=== PATIENT | male | born 1985 | race Caucasian/White ===

== ENCOUNTER 2019-09-07 03:51 | Inpatient (IN) | payer MEDICAID, SELFPAY ==
[2019-09-07] VITALS (27 sets, daily range): BP systolic 95–141; BP diastolic 70–106; PULSE 129–144; RESP 17–27; TEMP 36.3–37; O2SAT 96–100; BMI 24.0
--- NOTE | 2019-09-07 03:41 | NURSING ---
Dr. Myers at bedside.
[2019-09-07 03:51] LABS: Absolute Lymphocyte Count 2.54 X10^3/uL (0.83-4.51); Absolute Neutrophil Count 28.9 X10^3/uL (2.0-7.7); Basophil# 0.12 X10^3/uL; Basophil% 0.3 % (0-1); Eosinophil# 0.01 X10^3/uL; Hematocrit 43.4 % (40-54); Hemoglobin 14.3 g/dL (13.0-16.5); Lymphocyte # 2.54 X10^3/ul (4.0); Lymphocyte % 7.3 % (19-41); Mean Corp Hgb Conc 32.9 g/dL (32-36); Mean Corpuscular Hgb 28.8 pg (27.0-32.0); Mean Corpuscular Volume 87.3 fL (80-94); Mean Platelet Vol. 9.2 fl (6.2-12.0); Monocyte# 2.65 X10^3/uL; Monocyte% 7.6 % (0-10); NRBC Flagged by Analyzer 0 % (0-5); Neutrophil # 28.92 X10^3/uL (2.7-7.7); POSITIVE COUNT YES; POSITIVE DIFFERENTIAL YES; Platelet Count 396 K/mm3 (150-450); RBC Distribution Width CV 13.9 % (11.6-14.6); RBC Distribution Width SD 44.6 fl (35.1-43.9); Red Blood Count 4.97 M/mm3 (4.6-6.2)
[2019-09-07 03:55] LABS: International Normalized Ratio 1.1; Prothrombin Time (Protime)PT. 14.4 SECONDS (11.7-14.9)
[2019-09-07 03:56] LABS: Differential Indicated SCAN CRITERIA MET; Partial Thromboplast Time 25.3 Seconds (24.1-36.2)
[2019-09-07 03:57] LABS: White Blood Count 34.9 K/mm3 (4.4-11.0)
--- NOTE | 2019-09-07 03:58 | PCM.HP.STD ---
Problem List (1) DKA (diabetic ketoacidoses) Status: Acute (2) Hyperosmolar syndrome Status: Acute History of Present Illness Date of Admission: 09/07/19 Chief Complaint: nausea and vomiting The patient is a 34 year old M with a significant history of type 1 diabetes reportedly noncompliance and who was admitted multiple times in 2019 with last admission in July 2019 at [facility] and who is been transferred from [facility] emergency department for management of acute encephalopathy with hyperglycemia. History was taken from emergency department doctor at [facility] because patient is encephalopathic. Reportedly patient was having nausea and vomiting and his friends were putting him in a car to take him to the emergency department. However patient passed out and so paramedics were called. Paramedics took patient to the emergency department. At the emergency department at [place] patient was found to have a severely elevated blood glucose of 1352. His bicarb on BMP was 2 with an anion gap of 45. Beta hydroxybutyrate was more than 24. ABG showed a pH of 6.95; PCO2 18.6 PO2 60 bicarbonate was 4.1. Although patient's creatinine in December 2019 was 0.85; at presentation at [facility] this time around his creatinine was 2.74. Further his lactic acid was 4.1. His potassium was 7.2 and he had peak T waves. His temperature was 91.6F but because patient was taking bearhug away blankets were placed on patient instead. His white count was 34.2. Patient received bicarbonate 50 mEq; 1 g of calcium gluconate; albuterol; 3 L of normal saline and was started on insulin drip at 5 units per hour. Emergency department doctor at [facility] discussed the case with [facility] programming instructor and [place] aerial survey technician who round at our hospital and recommendations were made to accept patient at our Hospital. Past Medical History Medical History: Medical History (Last Updated 09/07/19 @ 06:[address] Haresh Myers MD) Type 1 diabetes E10.9 Allergies No Known Allergies Allergy (Verified 09/07/19 03:43) Surgical History: no surgical history Smoking Status: Current every day smoker Tobacco Use: Cigarettes - *Family History Maternal History Items: - - Patient does not know maternal medical history Paternal History Items: - - Patient does not know paternal medical history Review of Systems Constitutional: Reports: Malaise. Denies: Chills, Fever, Weight Change HEENT: Denies: Head Aches, Sinus Congestion, Sinus Drainage Cardiovascular: Reports: Syncope. Denies: Chest Pain, Palpitations Respiratory: Denies: Cough, Shortness of breath at rest, Sputum production Gastrointestinal: Reports: Nausea, Vomiting. Denies: Abdominal Pain Genitourinary: Denies: Dysuria Musculoskeletal: Denies: Joint Pain, Joint Tenderness Skin: Denies: Rash, Wounds Neurological: Denies: Numbness, Tingling, Focal weakness Psychiatric: Denies: Anxiety, Depression, Homicidal Ideations, Suicidal Ideations Hematologic/ Lymphatic: Denies: Easy Bruising, Easy Bleeding VTE Information - Inpt Only VTE Present on Admission: No VTE Mechan Device Prophylaxis: SCD's VTE Pharm Prophylaxis ordered?: No Patient Problems: Active and Suspected Problems DKA (diabetic ketoacidoses) (Acute) Hyperosmolar syndrome (Acute) - Physical Exam Vitals/I&O's: Vital Signs Pulse 131 H 09/07/19 03:29 Weight: 78 kg Body Mass Index (BMI) 24.0 General: Confused - However patient knows that he is at hospital and he knows that he is sick., Lethargic HEENT: Atraumatic, PERRLA, EOMI, Normocephalic Neck: Supple, No JVD, Negative Carotid Bruits Lungs: Clear to auscultation, Normal air movement, Tachypneic Cardiovascular: Normal S1, Normal S2, No murmurs, Tachycardic Abdomen: Bowel Sounds Present, Soft, Non Tender Extremities: No edema, Capillary Refill Less than 3 Seconds Skin: No rashes, No breakdown Musculoskeletal: No Tenderness to Palpation of Joints or Extremities Neurological: Slurred Speech Psych/Mental Status: Restless Laboratory Results 09/07/19 03:30: Lactic Acid Pending 09/07/19 03:30: WBC 34.9 H*, RBC 4.97, Hgb 14.3, Hct 43.4, MCV 87.3, MCH 28.8, MCHC 32.9, RDW Std Deviation 44.6 H, RDW Coeff of Guille 13.9, Plt Count 396, MPV 9.2, Immature Gran % (Auto) 1.800 H, Neut % (Auto) 83.0 H, Lymph % (Auto) 7.3 L, [place] % (Auto) 7.6, Eos % (Auto) 0.0, Baso % (Auto) 0.3, Absolute Neuts (auto) 28.9 H, Absolute Lymphs (auto) 2.54, Nucleated RBC % 0 09/07/19 03:30: PT 14.4, INR 1.1, APTT 25.3 09/07/19 03:30: Sodium Pending, Potassium Pending, Chloride Pending, Carbon Dioxide Pending, Anion Gap Pending, BUN Pending, Creatinine Pending, Est GFR (MDRD) Af Amer Pending, Est GFR (MDRD) Non-Af Pending, BUN/Creatinine Ratio Pending, Glucose Pending, Calcium Pending 09/07/19 03:30: Serum Osmolality Pending, Acetone Level Pending Current Medications Sodium Chloride () 250 mls @ 15 mls/hr IV .[id number] PRN PRN Reason: Saline Flush Sodium Chloride () 250 mls @ 15 mls/hr IV .[id number] PRN PRN Reason: Additional IVPB Infusion Sodium Chloride () 10 - 40 ml IV UD PRN PRN Reason: SALINE FLUSH Assessment/Plan All Active Problems DKA (diabetic ketoacidoses) (Acute) Hyperosmolar syndrome (Acute) The patient is a 34 year old M with a significant history of type 1 diabetes reportedly noncompliance and was admitted multiple times in 2019 with last admission in July 2019 at [facility] who is been transferred from [facility] emergency department for management of acute encephalopathy with hyperglycemia consistent with probable DKA and HHS.. Acute encephalopathy secondary to DKA and HHS DKA likely from noncompliance with insulin therapy. Insulin drip started from outside hospital emergency department; continue Completed IV bolus (3L) of normal saline at outside Hospital ED and normal saline infusion was started. Because of potassium of 7.2 at outside hospital supplemental potassium was not given. BMP every 4 hours to calculate anion gap; and corrected sodium. N.p.o. for now Lactic acid and A1c ordered. Yard Switcher and nephrology consults. Serum osmolality ordered Get blood cultures and urine cultures. ELIUD Reportedly his creatinine in July 2019 was 0.85. However his creatinine had increased to 2.74 at [facility] on this presentation. IV hydration as above. Tobacco abuse Counseled Declined nicotine patch. DVT prophylaxis low risk SCD. Code Visit Inpatient E&M: 65186 Init Hosp L3
[2019-09-07] MEDS: 0.9% Normal Saline 1,000 ML 250 ML IV (04:00)
[2019-09-07 04:09] LABS: Anion Gap 27 (5-15); BUN 50 mg/dL (7-18); BUN/Creat Ratio 20.7 RATIO (10-20); Calcium,Total 8.4 mg/dL (8.5-10.1); Chloride 105 mmol/L (98-107); Creatinine, Serum 2.42 mg/dL (0.70-1.30); EST Glomerular Filtration Rate 33 mL/min (>60); Est Glom Filt Rate - Afr Amer 40 mL/min (>60); Estimated Creatinine Clearance 46.24 ml/min; Glucose 627 mg/dL (74-106); Sodium Level 138 mmol/L (136-145)
[2019-09-07 04:10] LABS: Lactic Acid 4.4 mmol/L (0.4-1.9)
[2019-09-07 04:21] LABS: Allen Test POS; Base Excess -23 mmol/L (-2 to +2); Bicarbonate 5.3 mmol/L (22-26); Blood Gas Specimen Type ART; O2 Delivery Device Room Air; PO2 116 mmHG (75-100); SITE L Radial; SO2 98 % (95-99); Time Given 405; Total Carbon Dioxide 6 mmol/L; pCO2 13.5 mmHg (35-45)
[2019-09-07 04:23] LABS: Osmolality, Serum 355 mOsm/KG (275-295)
--- NOTE | 2019-09-07 04:42 | CPS ---
Pt.'s critical PCO2 level read to Dr. Myers
[2019-09-07 05:51] LABS: Bedside Glucose > 500 mg/dL (70-110)
[2019-09-07 06:15] LABS: Glucose 497 mg/dL (74-106)
[2019-09-07 06:36] LABS: Bedside Glucose 492 mg/dL (70-110)
[2019-09-07] MEDS: Ondansetron 4 MG/2 ML Vial IV (06:40)
--- NOTE | 2019-09-07 06:53 | ECHOD_ITS ---
Reason For Study: Murmur Procedure This was a 2D Doppler, Color Flow transthoracic echocardiogram. The study was technically difficult. Exam performed portable in ICU/CCU. Left Ventricle Normal size and thickness. The estimated ejection fraction is 75 %. Stage 1 diastolic dysfunction. LVOT dynamic gradient 53 m/sec. No regional wall motion abnormalities noted. Right Ventricle Normal size and thickness. Normal systolic function. Atria Normal left atrium. Normal right atrium. Normal atrial septum. Mitral Valve Systolic anterior motion of the mitral valve. Trivial mitral valve insufficiency. Tricuspid Valve Normal tricuspid valve. Unable to estimate RV systolic pressure due to insufficient tricuspid regurgitant envelope. Aortic Valve Trisinus/trileaflet aortic valve. Pulmonic Valve Normal pulmonic valve. Great Vessels Normal aortic root. Normal arch. Normal inferior vena cava. Inferior vena cava collapse with sniff. Pericardium/Pleural No pericardial effusion. MMode/2D Measurements & Calculations LVIDd: 3.9 cm IVSd: 1.0 cm LVOT diam: 2.2 cm LVIDs: 2.5 cm LVPWd: 0.95 cm LVOT area: 3.7 cm2 RVDd: 3.4 cm FS: 34.8 % Ao root diam: 3.0 cm LAV(MOD-bp): 21.7 ml LA A4 area: 10.2 cm2 LA dimension: 3.0 cm LAV(MOD-bp) Indexed: 11.0 ml/m2 LAV(MOD-sp2): 19.8 ml LAV(MOD-sp4): 21.3 ml RA A4 area: 8.9 cm2 Doppler Measurements & Calculations MV E max merrick: 90.8 cm/sec Lat Peak E' Merrick: 11.4 cm/sec Med Peak E' Merrick: 7.5 cm/sec MV A max merrick: 114.8 cm/sec E/E' lat: 8.0 E/E' med: 12.1 MV E/A: 0.79 Ao V2 max: 289.0 cm/sec LV V1 max: 187.7 cm/sec SV(LVOT): 119.8 ml Ao max P.4 mmHg LV V1 max P.1 mmHg Ao V2 mean: 205.3 cm/sec LV V1 mean P.4 mmHg Ao mean P.7 mmHg LV V1 mean: 131.8 cm/sec Ao V2 VTI: 47.1 cm LV V1 VTI: 32.5 cm JIGNA(I,D): 2.5 cm2 JIGNA(V,D): 2.4 cm2 PA V2 max: 126.2 cm/sec Interpretation Summary The estimated ejection fraction is 75 %. Hyperdynamic LV function. Stage 1 diastolic dysfunction. Systolic anterior motion of the mitral valve with dynamic LVOT gradient b/w 33 and 55mm Hg due to tachycardia. Trivial mitral valve insufficiency. Unable to estimate RV systolic pressure due to insufficient tricuspid regurgitant envelope. The study was technically difficult. There is no comparison study available. Ordering Physician: Jet Zavala Referring Physician: Adam Barney Performed By: Ruba Dalal, GARRET, RVT
[2019-09-07 07:11] LABS: Glucose 539 mg/dL (74-106)
[2019-09-07 07:46] LABS: Bedside Glucose 394 mg/dL (70-110)
[2019-09-07 07:46] LABS: Reflex Lactate? Y
--- NOTE | 2019-09-07 07:49 | CON.PCM_ITS ---
Problem List (1) DKA (diabetic ketoacidoses) Status: Acute Qualifiers: Diabetes mellitus type: type 1 Diabetes mellitus complication detail: with coma Qualified Code(s): E10.11 - Type 1 diabetes mellitus with ketoacidosis with coma (2) Hyperosmolar syndrome Status: Acute Reason for Consult Date of Consultation: 09/07/19 Reason for Consultation: DKA History of Present Illness: The patient is a 34 year old M, with a reported past medical history significant for type 1 diabetes mellitus with treated noncompliance that was transferred from [facility] secondary to acute encephalopathy with hyperglycemia. Patient reportedly has been seen multiple times at that facility in 2019 with similar type complaints. Patient had reportedly had some nausea and vomiting for 24 to 48 hours prior to presentation. Patient was brought to the ER by EMS after patient had passed out and they became concerned. At the outside facility, patient was noted to have a bicarbonate of 2, blood glucose of 1352, pH of 6.95 and an elevated creatinine at 2.74. Patient reportedly had a creatinine of 0.85 in December 2019. Patient did have some EKG changes with peak T waves and a potassium of 7.2. Patient was reportedly hypothermic at the outside facility with a leukocytosis. Patient had received some bicarbonate, calcium gluconate, albuterol and 3 L of normal saline prior to initiation of insulin drip. Patient was transferred to [facility] secondary to a lack of ICU beds at the outside facility. Patient has remained on the DKA protocol since arrival. Patient does open his eyes to voice, but quickly falls back asleep. Patient is not providing any additional history at this time. Majority of the medical history was per verbal conversations with outside facility and electronic medical record. Patient has not been seen here in quite some time. Unable to obtain a review of systems. Patient does appear to be protecting his airway and is saturating well on room air. Past Medical History Medical History: Medical History (Last Updated 09/07/19 @ 06:[address] Haresh Myers MD) Type 1 diabetes E10.9 Allergies No Known Allergies Allergy (Verified 09/07/19 03:43) Surgical History: no surgical history Smoking Status: Current every day smoker Tobacco Use: Cigarettes - *Family History Maternal History Items: - - Patient does not know maternal medical history Paternal History Items: - - Patient does not know paternal medical history Review of Systems Unable to obtain accurate/complete ROS d/t: See HPI Patient Problems: Active and Suspected Problems (Last Updated 09/07/19 @ 06:[address] Haresh Myers MD) DKA (diabetic ketoacidoses) (Acute) Hyperosmolar syndrome (Acute) - Physical Exam Vitals/I&O's: Vital Signs Temp Pulse Resp BP Pulse Ox 36.3 C L 134 H 22 H 108/70 100 09/07/19 06:00 09/07/19 06:00 09/07/19 06:00 09/07/19 06:00 09/07/19 06:00 Oxygen Delivery Method Room Air Weight: 78 kg Body Mass Index (BMI) 24.0 Finger Stick Blood Glucose 534 Intake and Output for Last 24 Hours 09/05/19 09/06/19 09/07/19 23:59 23:59 23:59 Intake Total 2.86 / 2.86 Output Total 800 / 800 Balance -797.14 / -797.14 General: Confused, Disoriented, Lethargic, Non-Cooperative, - - Appears stated age. Still with some tachypnea, but no accessory muscle use HEENT: Atraumatic, PERRLA, EOMI, Normocephalic, - - Scleral injection without icterus Oral: No Gingival or Mucosal Lesions/ Ulcerations, Dry Mucosa Neck: Supple, No JVD, No Nodes, Trachea Midline Lungs: Clear to auscultation, Normal air movement, No rhonchi, No wheeze, No rales, - - Symmetric expansion. No dullness to percussion. Cardiovascular: Normal S1, Normal S2, Murmur - Grade 3 out of 6 systolic ejection murmur at the apex, No rub noted, No Gallop, Tachycardic Abdomen: Bowel Sounds Present, Soft, Non Tender, Non-Distended Extremities: No clubbing, No cyanosis, No edema, Capillary Refill Less than 3 Seconds Skin: No rashes, No breakdown, - - No track pulido appreciated Musculoskeletal: No Tenderness to Palpation of Joints or Extremities Lymphatic: No Cervical, Supraclavicular, or Inguinal Adenopathy Neurological: Cranial nerves II-XII grossly intact, Neuro grossly intact, Motor Exam 5/5 strength throughout Psych/Mental Status: Flat Affect Laboratory Results 09/07/19 03:30: Lactic Acid 4.4 H* 09/07/19 03:30: WBC 34.9 H*, RBC 4.97, Hgb 14.3, Hct 43.4, MCV 87.3, MCH 28.8, MCHC 32.9, RDW Std Deviation 44.6 H, RDW Coeff of Guille 13.9, Plt Count 396, MPV 9.2, Immature Gran % (Auto) 1.800 H, Neut % (Auto) 83.0 H, Lymph % (Auto) 7.3 L, [place] % (Auto) 7.6, Eos % (Auto) 0.0, Baso % (Auto) 0.3, Absolute Neuts (auto) 28.9 H, Absolute Lymphs (auto) 2.54, Nucleated RBC % 0, Differential Comment , Diff Path Review November09/07/19 03:30: PT 14.4, INR 1.1, APTT 25.3 09/07/19 03:30: Sodium 138, Potassium 5.0, Chloride 105, Carbon Dioxide 6.0 L*, Anion Gap 27 H, BUN 50 H, Creatinine 2.42 H, Estim Creat Clear Calc 46.24, Est GFR (MDRD) Af Amer 40 L, Est GFR (MDRD) Non-Af 33 L, BUN/Creatinine Ratio 20.7 H , Glucose 627 H*, Calcium 8.4 L 09/07/19 03:30: Serum Osmolality 355 H, Acetone Level LARGE H 09/07/19 03:30: Hemoglobin A1c Pending 09/07/19 04:11: Specimen Type ART, Sample Site L Radial, pH 7.20 L, Bicarbonate Actual 5.3 L, POC Total CO2 6, Base Excess -23 L, O2 Saturation 98, ABG pCO2 13.5 L*, ABG pO2 116 H, Severino Test POS, O2 Delivery Device Room Air, Blood Gas Notified Whom HOSP , Blood Gas Notified Time 405 09/07/19 05:35: POC Glucose > 500 H* 09/07/19 05:40: Glucose 497 H* 09/07/19 06:29: POC Glucose 492 H* 09/07/19 06:43: Glucose 539 H* 09/07/19 07:35: Sodium Pending, Potassium Pending, Chloride Pending, Carbon Dioxide Pending, Anion Gap Pending, BUN Pending, Creatinine Pending, Est GFR (MDRD) Af Amer Pending, Est GFR (MDRD) Non-Af Pending, BUN/Creatinine Ratio Pending, Glucose Pending, Calcium Pending 09/07/19 07:36: POC Glucose 394 H Current Medications Glucagon () 1 mg IM .X1 PRN PRN Reason: Hypoglycemia Sodium Chloride () 250 mls @ 15 mls/hr IV .[id number] PRN PRN Reason: Saline Flush Sodium Chloride () 250 mls @ 15 mls/hr IV .[id number] PRN PRN Reason: Additional IVPB Infusion Insulin Human Lispro 100 unit/ (Sodium Chloride) 100 mls @ 7.8 mls/hr IV .[id number] GELY; Protocol Last Titration: 09/07/19 05:30 Dose: 0.02 units/kg/hr, 1.3 mls/hr Documented by: Dextrose (Dextrose 10%-Water) 250 mls @ 999 mls/hr IV .Q16M PRN; Protocol PRN Reason: HYPOGLYCEMIA Sodium Chloride () 1,000 mls @ 250 mls/hr IV .Q4H GELY Last Admin: 09/07/19 04:00 Dose: 250 mls/hr Documented by: Ondansetron HCl (Zofran) 4 mg IV Q8H PRN PRN PRN Reason: NAUSEA/VOMITING Last Admin: 09/07/19 06:40 Dose: 4 mg Documented by: Sodium Chloride () 10 - 40 ml IV UD PRN PRN Reason: SALINE FLUSH Assessment/Plan Active and Suspected Problems (Last Updated 09/07/19 @ 06:[address] Haresh Myers MD) DKA (diabetic ketoacidoses) (Acute) Hyperosmolar syndrome (Acute) RECOMMENDATIONS: 1. Continue DKA protocol 2. Add additional LR for hydration given high urine output 3. Continue to monitor airway in the intensive care unit 4. Attempt to obtain further information if family members arrive 5. Obtain echocardiogram for murmur IMPRESSIONS: 1. Acute DKA/hyperosmolar syndrome secondary to uncontrolled type 1 diabetes mellitus Exact etiology is unclear at this time. Patient does not have a reliable history provided. Patient does have a significant leukocytosis, but appears to be significantly volume depleted at this time. Empiric antibiotics can be initiated if patient becomes febrile, but tachycardia and tachypnea would be expected with acute DKA. Acidosis and anion gap appear to be improving with current therapy. Continue to monitor neuro status, but appears to be controlling his airway at this time. 2. Murmur with reported history of potential drug abuse Patient does have a murmur at the apex. This has not been documented previously. Unclear if this represents a flow murmur versus possible endocarditis given patient's leukocytosis. Will obtain an echocardiogram for evaluation. Peak T waves on presentation likely secondary to hyperkalemia, but this is improving with treatment of problem #1. 3. Metabolic encephalopathy/poor historian/poor background Complicates care, management, recovery and prognosis. We will continue to monitor airway closely. Will wait and see if family arrives for rounds this morning to provide more history. Code Visit Inpatient E&M: 24145 Init Hosp L3
[2019-09-07 07:51] LABS: Hemoglobin A1c 9.7 % (4.2-6.3)
[2019-09-07] MEDS: Lactated Ringers 1,000 ML 75 ML IV ×2 (08:00→21:07)
[2019-09-07] MEDS: Dext 5%-0.45% NS 1,000 ML 250 ML IV ×4 (08:00→20:54)
[2019-09-07 08:02] LABS: Anion Gap 20 (5-15); BUN 45 mg/dL (7-18); Calcium,Total 8.5 mg/dL (8.5-10.1); Chloride 112 mmol/L (98-107); Creatinine, Serum 2.05 mg/dL (0.70-1.30); EST Glomerular Filtration Rate 40 mL/min (>60); Est Glom Filt Rate - Afr Amer 48 mL/min (>60); Estimated Creatinine Clearance 54.59 ml/min; Glucose 498 mg/dL (74-106); Potassium 5.1 mmol/L (3.5-5.1); Sodium Level 144 mmol/L (136-145)
[2019-09-07 09:20] LABS: Bedside Glucose > 500 mg/dL (70-110)
--- NOTE | 2019-09-07 09:58 | PCM.HOSP.N ---
Hospitalist Note Went to evaluate the patient and patient is sleeping open his eyes briefly then went back to sleep refused interact further. Physical exam: Heart was regular rate and rhythm plus S1-S2 without murmurs Rubs. Lungs Are Clear to Auscultation Bilaterally. Abdomen Is Soft Nontender Nondistended Normal Bowel Sounds No Paraspinal Megaly. Extremities Were without Signs Clubbing Edema. Assessment and Plan: 1. Diabetic Ketoacidosis. Continue with the Insulin Drip and DKA Protocol with IV Fluids. Eventually Transition the Patient over Basal and Prandial Insulins Once He Is Out Of Diabetic Ketoacidosis. Code Visit Procedures: Other Procedure - See Report - non billable rounding. seen after midnight.
--- NOTE | 2019-09-07 10:29 | CASEMGMT ---
RN JOSTIN Note: Participated in ICU interdisciplinary rounds. PT is sleepy, lethargic per nursing, and did not participate. Plan is for continued insulin gtt, IVF. Of note, pt reportedly has frequent admissions to [facility] and questionable drug use hx. -RN CM deferred at this time. Mary ARGUELLON RN ACM
[2019-09-07 10:46] LABS: Bedside Glucose 453 mg/dL (70-110)
[2019-09-07 11:21] LABS: Bedside Glucose 470 mg/dL (70-110)
--- NOTE | 2019-09-07 11:30 | CON.PCM_ITS ---
Problem List (1) Acidosis Status: Acute Consultation - Renal 09/07/19 PCP/ Referring MD: Requesting physician: [] Primary care physician: Adam Barney MD Reason for Consultation:: Acidosis - History of Present Illness History of Present Illness: The patient is a 34 year old M poor historian. Apparently was found down in a parking lot by friends. Went to ER in [place] and was found to have severe diabetic ketoacidosis/honk. Renal consulted for hyperkalemia, acute renal failure, acidosis. He is currently drowsy. As per records he had several hospitalizations at [facility]. Urine output has been fairly good. Potassium has improved. Review of systems cannot be obtained due to his mental status. - Allergies Allergies: Allergies No Known Allergies Allergy (Verified 09/07/19 03:43) - Current Medications Current Medications: Current Medications Glucagon () 1 mg IM .X1 PRN PRN Reason: Hypoglycemia Sodium Chloride () 250 mls @ 15 mls/hr IV .[id number] PRN PRN Reason: Saline Flush Sodium Chloride () 250 mls @ 15 mls/hr IV .[id number] PRN PRN Reason: Additional IVPB Infusion Insulin Human Lispro 100 unit/ (Sodium Chloride) 100 mls @ 7.8 mls/hr IV .[id number] GELY; Protocol Last Titration: 09/07/19 11:16 Dose: 0.03 units/kg/hr, 2.3 mls/hr Documented by: Dextrose (Dextrose 10%-Water) 250 mls @ 999 mls/hr IV .Q16M PRN; Protocol PRN Reason: HYPOGLYCEMIA Dextrose/Sodium Chloride () 1,000 mls @ 250 mls/hr IV .Q4H GELY Last Admin: 09/07/19 08:00 Dose: 250 mls/hr Documented by: Lactated Ringer's () 1,000 mls @ 75 mls/hr IV .[id number] GELY Last Admin: 09/07/19 08:00 Dose: 75 mls/hr Documented by: Ondansetron HCl (Zofran) 4 mg IV Q8H PRN PRN PRN Reason: NAUSEA/VOMITING Last Admin: 09/07/19 06:40 Dose: 4 mg Documented by: Sodium Chloride () 10 - 40 ml IV UD PRN PRN Reason: SALINE FLUSH - Past Surgical History Surgical History: no surgical history - Social History Smoking Status: Current every day smoker - Family History Maternal History Items: - - Patient does not know maternal medical history Paternal History Items: - - Patient does not know paternal medical history Review of Systems Unable to obtain accurate/complete ROS d/t: due to AMS Patient Problems: Active and Suspected Problems (Last Updated 09/07/19 @ 06:[address] Haresh Myers MD) DKA (diabetic ketoacidoses) (Acute) Hyperosmolar syndrome (Acute) Acidosis (Acute) - Physical Exam Vitals/I&O's: Vital Signs Temp Pulse Resp BP Pulse Ox 98.3 F 138 H 22 H 123/80 H 100 09/07/19 08:00 09/07/19 10:00 09/07/19 10:00 09/07/19 10:00 09/07/19 10:00 Oxygen Delivery Method Room Air Weight: 78 kg Body Mass Index (BMI) 24.0 Finger Stick Blood Glucose 470 Intake and Output for Last 24 Hours 09/05/19 09/06/19 09/07/19 23:59 23:59 23:59 Intake Total 10.36 / 10.36 Output Total 800 / 800 Balance -789.64 / -789.64 General: Confused HEENT: Atraumatic, PERRLA, EOMI, Normocephalic Neck: Supple, No JVD, Negative Carotid Bruits Lungs: Clear to auscultation, Normal air movement Cardiovascular: Regular rate, No murmurs Abdomen: Bowel Sounds Present, Soft, Non Tender Extremities: No edema, Capillary Refill Less than 3 Seconds Skin: No rashes, No breakdown Musculoskeletal: No Tenderness to Palpation of Joints or Extremities Psych/Mental Status: Agitated Laboratory Results 09/07/19 03:30: Lactic Acid 4.4 H* 09/07/19 03:30: WBC 34.9 H*, RBC 4.97, Hgb 14.3, Hct 43.4, MCV 87.3, MCH 28.8, MCHC 32.9, RDW Std Deviation 44.6 H, RDW Coeff of Guille 13.9, Plt Count 396, MPV 9.2, Immature Gran % (Auto) 1.800 H, Neut % (Auto) 83.0 H, Lymph % (Auto) 7.3 L, [place] % (Auto) 7.6, Eos % (Auto) 0.0, Baso % (Auto) 0.3, Absolute Neuts (auto) 28.9 H, Absolute Lymphs (auto) 2.54, Nucleated RBC % 0, Differential Comment , Diff Path Review November09/07/19 03:30: PT 14.4, INR 1.1, APTT 25.3 09/07/19 03:30: Sodium 138, Potassium 5.0, Chloride 105, Carbon Dioxide 6.0 L*, Anion Gap 27 H, BUN 50 H, Creatinine 2.42 H, Estim Creat Clear Calc 46.24, Est GFR (MDRD) Af Amer 40 L, Est GFR (MDRD) Non-Af 33 L, BUN/Creatinine Ratio 20.7 H , Glucose 627 H*, Calcium 8.4 L 09/07/19 03:30: Serum Osmolality 355 H, Acetone Level LARGE H 09/07/19 03:30: Hemoglobin A1c 9.7 H 09/07/19 04:11: Specimen Type ART, Sample Site L Radial, pH 7.20 L, Bicarbonate Actual 5.3 L, POC Total CO2 6, Base Excess -23 L, O2 Saturation 98, ABG pCO2 13.5 L*, ABG pO2 116 H, Severino Test POS, O2 Delivery Device Room Air, Blood Gas Notified Whom ALESSIA SULLIVAN, Blood Gas Notified Time 405 09/07/19 05:35: POC Glucose > 500 H* 09/07/19 05:40: Glucose 497 H* 09/07/19 06:29: POC Glucose 492 H* 09/07/19 06:43: Glucose 539 H* 09/07/19 07:35: Sodium 144, Potassium 5.1, Chloride 112 H, Carbon Dioxide 12.0 L , Anion Gap 20 H, BUN 45 H, Creatinine 2.05 H, Estim Creat Clear Calc 54.59, Est GFR (MDRD) Af Amer 48 L, Est GFR (MDRD) Non-Af 40 L, BUN/Creatinine Ratio 22.0 H, Glucose 498 H*, Calcium 8.5 09/07/19 07:36: POC Glucose 394 H 09/07/19 09:15: POC Glucose > 500 H* 09/07/19 10:05: POC Glucose 453 H* 09/07/19 10:25: Lactic Acid 2.0 09/07/19 11:15: POC Glucose 470 H* Current Medications Glucagon () 1 mg IM .X1 PRN PRN Reason: Hypoglycemia Sodium Chloride () 250 mls @ 15 mls/hr IV .[id number] PRN PRN Reason: Saline Flush Sodium Chloride () 250 mls @ 15 mls/hr IV .[id number] PRN PRN Reason: Additional IVPB Infusion Insulin Human Lispro 100 unit/ (Sodium Chloride) 100 mls @ 7.8 mls/hr IV .[id number] GELY; Protocol Last Titration: 09/07/19 11:16 Dose: 0.03 units/kg/hr, 2.3 mls/hr Documented by: Dextrose (Dextrose 10%-Water) 250 mls @ 999 mls/hr IV .Q16M PRN; Protocol PRN Reason: HYPOGLYCEMIA Dextrose/Sodium Chloride () 1,000 mls @ 250 mls/hr IV .Q4H GELY Last Admin: 09/07/19 08:00 Dose: 250 mls/hr Documented by: Lactated Ringer's () 1,000 mls @ 75 mls/hr IV .[id number] GELY Last Admin: 09/07/19 08:00 Dose: 75 mls/hr Documented by: Ondansetron HCl (Zofran) 4 mg IV Q8H PRN PRN PRN Reason: NAUSEA/VOMITING Last Admin: 09/07/19 06:40 Dose: 4 mg Documented by: Sodium Chloride () 10 - 40 ml IV UD PRN PRN Reason: SALINE FLUSH Assessment/Plan All Active Problems (Last Updated 09/07/19 @ 06:[address] Haresh Myers MD) DKA (diabetic ketoacidoses) (Acute) Hyperosmolar syndrome (Acute) Acidosis (Acute) Acute renal failure. Likely related to volume depletion. Discussed with staff. Urine output is fairly good. Creatinine is improving with volume repletion. Hyperkalemia is better. Acidosis. Elevated anion gap, diabetic ketoacidosis related. Currently on insulin drip. Continue insulin drip until anion gap is closed. IV fluids changed by ICU attending. Discussed with Dr. Zavala
[2019-09-07 12:07] LABS: Anion Gap 17 (5-15); BUN 40 mg/dL (7-18); BUN/Creat Ratio 19.6 RATIO (10-20); Calcium,Total 8.2 mg/dL (8.5-10.1); Chloride 112 mmol/L (98-107); Creatinine, Serum 2.04 mg/dL (0.70-1.30); EST Glomerular Filtration Rate 40 mL/min (>60); Est Glom Filt Rate - Afr Amer 49 mL/min (>60); Estimated Creatinine Clearance 54.85 ml/min; Glucose 493 mg/dL (74-106); Potassium 4.5 mmol/L (3.5-5.1); Sodium Level 144 mmol/L (136-145)
[2019-09-07 12:11] LABS: Bedside Glucose 438 mg/dL (70-110)
[2019-09-07 13:06] LABS: Bedside Glucose 388 mg/dL (70-110)
[2019-09-07 14:46] LABS: Bedside Glucose 363 mg/dL (70-110)
[2019-09-07 15:21] LABS: Bedside Glucose 294 mg/dL (70-110)
[2019-09-07 16:15] LABS: Bedside Glucose 387 mg/dL (70-110)
[2019-09-07 17:01] LABS: Anion Gap 9 (5-15); BUN 32 mg/dL (7-18); BUN/Creat Ratio 17.7 RATIO (10-20); Calcium,Total 8.7 mg/dL (8.5-10.1); Chloride 116 mmol/L (98-107); Creatinine, Serum 1.81 mg/dL (0.70-1.30); EST Glomerular Filtration Rate 46 mL/min (>60); Est Glom Filt Rate - Afr Amer 56 mL/min (>60); Estimated Creatinine Clearance 61.83 ml/min; Glucose 409 mg/dL (74-106); Potassium 4.5 mmol/L (3.5-5.1); Sodium Level 147 mmol/L (136-145)
[2019-09-07 17:21] LABS: Bedside Glucose 340 mg/dL (70-110)
[2019-09-07 18:11] LABS: Bedside Glucose 348 mg/dL (70-110)
[2019-09-07 19:11] LABS: Bedside Glucose 314 mg/dL (70-110)
[2019-09-07 20:06] LABS: Bedside Glucose 314 mg/dL (70-110)
[2019-09-07 20:39] LABS: Anion Gap 10 (5-15); BUN 28 mg/dL (7-18); BUN/Creat Ratio 15.6 RATIO (10-20); Calcium,Total 8.7 mg/dL (8.5-10.1); Chloride 116 mmol/L (98-107); Creatinine, Serum 1.79 mg/dL (0.70-1.30); EST Glomerular Filtration Rate 47 mL/min (>60); Est Glom Filt Rate - Afr Amer 57 mL/min (>60); Estimated Creatinine Clearance 62.52 ml/min; Glucose 341 mg/dL (74-106); Potassium 3.8 mmol/L (3.5-5.1); Sodium Level 149 mmol/L (136-145)
[2019-09-07 21:16] LABS: Bedside Glucose 274 mg/dL (70-110)
[2019-09-07] MEDS: LORazepam 1 MG Tablet PO (21:43)
[2019-09-07 23:01] LABS: Bedside Glucose 266 mg/dL (70-110)
[2019-09-08] VITALS (21 sets, daily range): BP systolic 119–153; BP diastolic 73–98; PULSE 108–136; RESP 11–20; TEMP 36.6–37.4; O2SAT 94–100
[2019-09-08 03:46] LABS: Bedside Glucose 349 mg/dL (70-110)
[2019-09-08 04:01] LABS: Anion Gap 10 (5-15); BUN 24 mg/dL (7-18); BUN/Creat Ratio 16.6 RATIO (10-20); Calcium,Total 8.5 mg/dL (8.5-10.1); Chloride 111 mmol/L (98-107); Creatinine, Serum 1.45 mg/dL (0.70-1.30); EST Glomerular Filtration Rate 60 mL/min (>60); Est Glom Filt Rate - Afr Amer 72 mL/min (>60); Estimated Creatinine Clearance 77.18 ml/min; Glucose 363 mg/dL (74-106); Sodium Level 145 mmol/L (136-145)
[2019-09-08 04:15] LABS: Absolute Lymphocyte Count 1.71 X10^3/uL (0.83-4.51); Absolute Neutrophil Count 16.6 X10^3/uL (2.0-7.7); Basophil# 0.03 X10^3/uL; Basophil% 0.2 % (0-1); Eosinophil# 0.02 X10^3/uL; Eosinophils% 0.1 % (0-5); Hematocrit 37.5 % (40-54); Hemoglobin 12.4 g/dL (13.0-16.5); Lymphocyte # 1.71 X10^3/ul (4.0); Lymphocyte % 8.8 % (19-41); Mean Corp Hgb Conc 33.1 g/dL (32-36); Mean Corpuscular Hgb 28.1 pg (27.0-32.0); Mean Corpuscular Volume 84.8 fL (80-94); Mean Platelet Vol. 9.1 fl (6.2-12.0); Monocyte# 1.02 X10^3/uL; Monocyte% 5.3 % (0-10); NRBC Flagged by Analyzer 0 % (0-5); Neutrophil # 16.55 X10^3/uL (2.7-7.7); Neutrophil % 85.2 % (47-70); Platelet Count 315 K/mm3 (150-450); RBC Distribution Width CV 14.8 % (11.6-14.6); RBC Distribution Width SD 45.6 fl (35.1-43.9); Red Blood Count 4.42 M/mm3 (4.6-6.2); White Blood Count 19.4 K/mm3 (4.4-11.0)
[2019-09-08] MEDS: Insulin Lispro 100 UNIT/ML INSULN.PEN 8 UNIT SC (06:54)
[2019-09-08] MEDS: Insulin Lispro 100 UNIT/ML INSULN.PEN SC ×4 (06:55→21:41)
[2019-09-08] MEDS: Lactated Ringers 1,000 ML 999 ML IV (06:56)
[2019-09-08] MEDS: Lactated Ringers 1,000 ML 75 ML IV ×2 (06:59→20:01)
[2019-09-08 07:06] LABS: Bedside Glucose 393 mg/dL (70-110)
--- NOTE | 2019-09-08 08:46 | CT_ITS ---
STUDY: CT BRAIN WITHOUT CONTRAST REASON FOR EXAM: Male, 34 years old. MENTAL STATUS CHANGES. Type 1 diabetic-non compliant RADIATION DOSAGE (If Supplied By Facility): CTDIvol = ( 44.99 ) mGy, DLP = ( 829.85 ) mGycm TECHNIQUE: Transaxial CT imaging of the brain was performed without administration of intravenous contrast material. Individualized dose optimization techniques were used for this CT. COMPARISON: No relevant priors. FINDINGS: Normal soft tissue structures. Normal calvarium. Normal size ventricles and extra-axial spaces for the patient''s age. Normal white matter tracts of the cerebral hemispheres. Normal basal ganglia and thalami. Normal brainstem. Normal cerebellum. There is no intracranial hemorrhage. There are no findings of an acute ischemic infarction. Normal visualized paranasal sinuses. CT/Brain/Head without Contrast IMPRESSION: Normal unenhanced CT scan of the brain. Electronically Signed: Fer Kent, at 11:16 EST , Service support ,
[2019-09-08 09:23] LABS: Pathologist Review Reviewed
--- NOTE | 2019-09-08 10:02 | PN_ITS ---
Patient Problems: Active and Suspected Problems (Last Updated 09/07/19 @ 06:[address] Haresh Myers MD) DKA (diabetic ketoacidoses) (Acute) Hyperosmolar syndrome (Acute) Acidosis (Acute) Reason for Visit: DKA Subjective: Poor conversant, begrudgingly communicates and when he does so, his responses ar e brief. Vitals/I&O's: Vital Signs Temp Pulse Resp BP Pulse Ox 36.6 C 122 H 16 131/86 H 98 09/08/19 03:00 09/08/19 06:00 09/08/19 06:00 09/08/19 06:00 09/08/19 06:00 Oxygen Delivery Method Room Air Weight: 80.6 kg Body Mass Index (BMI) 24.0 Finger Stick Blood Glucose 314 Intake and Output for Last 24 Hours 09/06/19 09/07/19 09/08/19 23:59 23:59 23:59 Intake Total 4931.85 / 5631.85 1939 / 1939 Output Total 3650 / 4400 2074 Balance 1281.85 / 1231.85 -135 / -135 General: No apparent distress, - - groggy. afebrile. HEENT: Atraumatic, Normocephalic Oral: Moist Mucosa, No Gingival or Mucosal Lesions/ Ulcerations Neck: No Nodes, Trachea Midline Lungs: Clear to auscultation, Normal air movement Cardiovascular: Regular rate, Regular Rhythm, Normal S1, Normal S2, No murmurs Abdomen: Bowel Sounds Present, Soft, Non Tender, Non-Distended Extremities: No edema, No Calf Tenderness Skin: No rashes, - - numerous tattoos. Psych/Mental Status: Agitated Laboratory Results 09/07/19 03:30: Diff Path Review Reviewed 09/07/19 10:05: POC Glucose 453 H* 09/07/19 10:25: Lactic Acid 2.0 09/07/19 11:15: POC Glucose 470 H* 09/07/19 11:40: Sodium 144, Potassium 4.5, Chloride 112 H, Carbon Dioxide 15.0 L , Anion Gap 17 H, BUN 40 H, Creatinine 2.04 H, Estim Creat Clear Calc 54.85, Est GFR (MDRD) Af Amer 49 L, Est GFR (MDRD) Non-Af 40 L, BUN/Creatinine Ratio 19.6, Glucose 493 H*, Calcium 8.2 L 09/07/19 12:02: POC Glucose 438 H 09/07/19 12:58: POC Glucose 388 H 09/07/19 14:22: POC Glucose 363 H 09/07/19 15:10: POC Glucose 294 H 09/07/19 16:00: Sodium 147 H, Potassium 4.5, Chloride 116 H, Carbon Dioxide 22.0, Anion Gap 9, BUN 32 H, Creatinine 1.81 H, Estim Creat Clear Calc 61.83, Est GFR (MDRD) Af Amer 56 L, Est GFR (MDRD) Non-Af 46 L, BUN/Creatinine Ratio 17.7, Glucose 409 H, Calcium 8.7 09/07/19 16:10: POC Glucose 387 H 09/07/19 17:09: POC Glucose 340 H 09/07/19 18:02: POC Glucose 348 H 09/07/19 19:03: POC Glucose 314 H 09/07/19 19:59: POC Glucose 314 H 09/07/19 20:00: Sodium 149 H, Potassium 3.8, Chloride 116 H, Carbon Dioxide 23.0, Anion Gap 10, BUN 28 H, Creatinine 1.79 H, Estim Creat Clear Calc 62.52, Est GFR (MDRD) Af Amer 57 L, Est GFR (MDRD) Non-Af 47 L, BUN/Creatinine Ratio 15.6, Glucose 341 H, Calcium 8.7 09/07/19 21:06: POC Glucose 274 H 09/07/19 22:56: POC Glucose 266 H 09/08/19 03:36: POC Glucose 349 H 09/08/19 03:40: WBC 19.4 H, RBC 4.42 L, Hgb 12.4 L, Hct 37.5 L, MCV 84.8, MCH 28.1, MCHC 33.1, RDW Std Deviation 45.6 H, RDW Coeff of Guille 14.8 H, Plt Count 315, MPV 9.1, Immature Gran % (Auto) 0.400, Neut % (Auto) 85.2 H, Lymph % (Auto) 8.8 L, [place] % (Auto) 5.3, Eos % (Auto) 0.1, Baso % (Auto) 0.2, Absolute Neuts (auto) 16.6 H, Absolute Lymphs (auto) 1.71, Nucleated RBC % 0 09/08/19 03:40: Sodium 145, Potassium 4.0, Chloride 111 H, Carbon Dioxide 24.0, Anion Gap 10, BUN 24 H, Creatinine 1.45 H, Estim Creat Clear Calc 77.18, Est GFR (MDRD) Af Amer 72, Est GFR (MDRD) Non-Af 60, BUN/Creatinine Ratio 16.6, Glucose 363 H, Calcium 8.5 09/08/19 06:49: POC Glucose 393 H Current Medications Glucagon () 1 mg IM .X1 PRN PRN Reason: Hypoglycemia Sodium Chloride () 250 mls @ 15 mls/hr IV .[id number] PRN PRN Reason: Saline Flush Sodium Chloride () 250 mls @ 15 mls/hr IV .[id number] PRN PRN Reason: Additional IVPB Infusion Dextrose (Dextrose 10%-Water) 250 mls @ 999 mls/hr IV .Q16M PRN; Protocol PRN Reason: HYPOGLYCEMIA Lactated Ringer's () 1,000 mls @ 75 mls/hr IV .[id number] GELY Last Admin: 09/08/19 06:59 Dose: 75 mls/hr Documented by: Insulin Glargine (Lantus (Bkc)) 25 units SC BID GELY Insulin Human Lispro (Humalog Kwikpen (Bkc)) 0 unit SC ACHS GELY; Protocol Last Admin: 09/08/19 06:55 Dose: 6 units Documented by: Ondansetron HCl (Zofran) 4 mg IV Q8H PRN PRN PRN Reason: NAUSEA/VOMITING Last Admin: 09/07/19 06:40 Dose: 4 mg Documented by: Sodium Chloride () 10 - 40 ml IV UD PRN PRN Reason: SALINE FLUSH Medical Necessity - Tobacco Use Smoking Status: Current every day smoker Tobacco Use: Cigarettes Assessment/Plan All Active Problems (Last Updated 09/07/19 @ 06:[address] Haresh Myers MD) DKA (diabetic ketoacidoses) (Acute) Hyperosmolar syndrome (Acute) Acidosis (Acute) 1. DKA * resolved * patient does not know what he takes at home. Given 25 units of glargine on 09/06 at 2117. Will continue with BID dosing for now. * Has SSI ordered, given 6 units this AM * will need to verify home dosing 2. Encephalopathy * ongoing * unknown baseline, though, presumably better than he is currently * check tox screen * avoid potentiating agents * check head CT 3. ELIUD * improving with IVF * likely prerenal 4. Disposition: not ready for discharge yet, transfer to PCU for now. Code Visit Inpatient E&M: 48862 Subs Hosp L2
[2019-09-08 10:20] LABS: Bedside Glucose 194 mg/dL (70-110)
--- NOTE | 2019-09-08 10:26 | PCM.PN.INT ---
Subjective: Patient opens up to voice and makes initial eye contact. Then proceeds to look around the room. Communicates intermittently. Patient has refused any food, but is readily drinking without complications. General: - - RASS -1. Appears stated age. Slightly paranoid affect. HEENT: Atraumatic, PERRLA, EOMI, Normocephalic, - - No scleral icterus or injection noted Oral: Moist Mucosa, No Gingival or Mucosal Lesions/ Ulcerations Neck: Supple, No JVD, No Nuchal Rigidity, Trachea Midline Lungs: Clear to auscultation, Normal air movement, No rhonchi, No wheeze, No rales Cardiovascular: Normal S1, Normal S2, No murmurs, No rub noted, No Gallop, Tachycardic Abdomen: Bowel Sounds Present, Soft, Non Tender, Non-Distended Extremities: No clubbing, No cyanosis, No edema, Capillary Refill Less than 3 Seconds Skin: No rashes, No breakdown, - - Multiple tattoos noted Musculoskeletal: No Tenderness to Palpation of Joints or Extremities Lymphatic: No Cervical, Supraclavicular, or Inguinal Adenopathy Neurological: Cranial nerves II-XII grossly intact, Neuro grossly intact, Motor Exam 5/5 strength throughout Psych/Mental Status: Anxious, Impulsive, Restless Vital Signs Temp Pulse Resp BP Pulse Ox 36.6 C 122 H 16 131/86 H 98 09/08/19 03:00 09/08/19 06:00 09/08/19 06:00 09/08/19 06:00 09/08/19 06:00 Oxygen Delivery Method Room Air Weight: 80.6 kg Body Mass Index (BMI) 24.0 Finger Stick Blood Glucose 314 Intake and Output for Last 24 Hours 09/06/19 09/07/19 09/08/19 23:59 23:59 23:59 Intake Total 4931.85 / 5631.85 1940 / 0 Output Total 3650 / 4400 2074 / 2074 Balance 1281.85 / 1231.85 -135 / -135 Labs (Last 48 Hours) 09/07/19 09/07/19 09/07/19 03:30 03:30 03:30 WBC 34.9 H* RBC 4.97 Hgb 14.3 Hct 43.4 MCV 87.3 MCH 28.8 MCHC 32.9 RDW Std Deviation 44.6 H RDW Coeff of Guille 13.9 Plt Count 396 MPV 9.2 Immature Gran % (Auto) 1.800 H Neut % (Auto) 83.0 H Lymph % (Auto) 7.3 L [place] % (Auto) 7.6 Eos % (Auto) 0.0 Baso % (Auto) 0.3 Absolute Neuts (auto) 28.9 H Absolute Lymphs (auto) 2.54 Nucleated RBC % 0 Differential Comment Diff Path Review Reviewed PT 14.4 INR 1.1 APTT 25.3 Specimen Type Sample Site pH Bicarbonate Actual POC Total CO2 Base Excess O2 Saturation ABG pCO2 ABG pO2 Severino Test O2 Delivery Device Blood Gas Notified Whom Blood Gas Notified Time Sodium Potassium Chloride Carbon Dioxide Anion Gap BUN Creatinine Estim Creat Clear Calc Est GFR (MDRD) Af Amer Est GFR (MDRD) Non-Af BUN/Creatinine Ratio Glucose Hemoglobin A1c Serum Osmolality Lactic Acid 4.4 H* Calcium Acetone Level POC Glucose 09/07/19 09/07/19 09/07/19 03:30 03:30 03:30 WBC RBC Hgb Hct MCV MCH MCHC RDW Std Deviation RDW Coeff of Guille Plt Count MPV Immature Gran % (Auto) Neut % (Auto) Lymph % (Auto) [place] % (Auto) Eos % (Auto) Baso % (Auto) Absolute Neuts (auto) Absolute Lymphs (auto) Nucleated RBC % Differential Comment Diff Path Review PT INR APTT Specimen Type Sample Site pH Bicarbonate Actual POC Total CO2 Base Excess O2 Saturation ABG pCO2 ABG pO2 Severino Test O2 Delivery Device Blood Gas Notified Whom Blood Gas Notified Time Sodium 138 Potassium 5.0 Chloride 105 Carbon Dioxide 6.0 L* Anion Gap 27 H BUN 50 H Creatinine 2.42 H Estim Creat Clear Calc 46.24 Est GFR (MDRD) Af Amer 40 L Est GFR (MDRD) Non-Af 33 L BUN/Creatinine Ratio 20.7 H Glucose 627 H* Hemoglobin A1c 9.7 H Serum Osmolality 355 H Lactic Acid Calcium 8.4 L Acetone Level LARGE H POC Glucose 09/07/19 09/07/19 09/07/19 04:11 05:35 05:40 WBC RBC Hgb Hct MCV MCH MCHC RDW Std Deviation RDW Coeff of Guille Plt Count MPV Immature Gran % (Auto) Neut % (Auto) Lymph % (Auto) [place] % (Auto) Eos % (Auto) Baso % (Auto) Absolute Neuts (auto) Absolute Lymphs (auto) Nucleated RBC % Differential Comment Diff Path Review PT INR APTT Specimen Type ART Sample Site L Radial pH 7.20 L Bicarbonate Actual 5.3 L POC Total CO2 6 Base Excess -23 L O2 Saturation 98 ABG pCO2 13.5 L* ABG pO2 116 H Severino Test POS O2 Delivery Device Room Air Blood Gas Notified Whom [facility] Blood Gas Notified Time 405 Sodium Potassium Chloride Carbon Dioxide Anion Gap BUN Creatinine Estim Creat Clear Calc Est GFR (MDRD) Af Amer Est GFR (MDRD) Non-Af BUN/Creatinine Ratio Glucose 497 H* Hemoglobin A1c Serum Osmolality Lactic Acid Calcium Acetone Level POC Glucose > 500 H* 09/07/19 09/07/19 09/07/19 06:29 06:43 07:35 WBC RBC Hgb Hct MCV MCH MCHC RDW Std Deviation RDW Coeff of Guille Plt Count MPV Immature Gran % (Auto) Neut % (Auto) Lymph % (Auto) [place] % (Auto) Eos % (Auto) Baso % (Auto) Absolute Neuts (auto) Absolute Lymphs (auto) Nucleated RBC % Differential Comment Diff Path Review PT INR APTT Specimen Type Sample Site pH Bicarbonate Actual POC Total CO2 Base Excess O2 Saturation ABG pCO2 ABG pO2 Severino Test O2 Delivery Device Blood Gas Notified Whom Blood Gas Notified Time Sodium 144 Potassium 5.1 Chloride 112 H Carbon Dioxide 12.0 L Anion Gap 20 H BUN 45 H Creatinine 2.05 H Estim Creat Clear Calc 54.59 Est GFR (MDRD) Af Amer 48 L Est GFR (MDRD) Non-Af 40 L BUN/Creatinine Ratio 22.0 H Glucose 539 H* 498 H* Hemoglobin A1c Serum Osmolality Lactic Acid Calcium 8.5 Acetone Level POC Glucose 492 H* 09/07/19 09/07/19 09/07/19 07:36 09:15 10:05 WBC RBC Hgb Hct MCV MCH MCHC RDW Std Deviation RDW Coeff of Guille Plt Count MPV Immature Gran % (Auto) Neut % (Auto) Lymph % (Auto) [place] % (Auto) Eos % (Auto) Baso % (Auto) Absolute Neuts (auto) Absolute Lymphs (auto) Nucleated RBC % Differential Comment Diff Path Review PT INR APTT Specimen Type Sample Site pH Bicarbonate Actual POC Total CO2 Base Excess O2 Saturation ABG pCO2 ABG pO2 Severino Test O2 Delivery Device Blood Gas Notified Whom Blood Gas Notified Time Sodium Potassium Chloride Carbon Dioxide Anion Gap BUN Creatinine Estim Creat Clear Calc Est GFR (MDRD) Af Amer Est GFR (MDRD) Non-Af BUN/Creatinine Ratio Glucose Hemoglobin A1c Serum Osmolality Lactic Acid Calcium Acetone Level POC Glucose 394 H > 500 H* 453 H* 09/07/19 09/07/19 09/07/19 10:25 11:15 11:40 WBC RBC Hgb Hct MCV MCH MCHC RDW Std Deviation RDW Coeff of Guille Plt Count MPV Immature Gran % (Auto) Neut % (Auto) Lymph % (Auto) [place] % (Auto) Eos % (Auto) Baso % (Auto) Absolute Neuts (auto) Absolute Lymphs (auto) Nucleated RBC % Differential Comment Diff Path Review PT INR APTT Specimen Type Sample Site pH Bicarbonate Actual POC Total CO2 Base Excess O2 Saturation ABG pCO2 ABG pO2 Severino Test O2 Delivery Device Blood Gas Notified Whom Blood Gas Notified Time Sodium 144 Potassium 4.5 Chloride 112 H Carbon Dioxide 15.0 L Anion Gap 17 H BUN 40 H Creatinine 2.04 H Estim Creat Clear Calc 54.85 Est GFR (MDRD) Af Amer 49 L Est GFR (MDRD) Non-Af 40 L BUN/Creatinine Ratio 19.6 Glucose 493 H* Hemoglobin A1c Serum Osmolality Lactic Acid 2.0 Calcium 8.2 L Acetone Level POC Glucose 470 H* 09/07/19 09/07/19 09/07/19 12:02 12:58 14:22 WBC RBC Hgb Hct MCV MCH MCHC RDW Std Deviation RDW Coeff of Guille Plt Count MPV Immature Gran % (Auto) Neut % (Auto) Lymph % (Auto) [place] % (Auto) Eos % (Auto) Baso % (Auto) Absolute Neuts (auto) Absolute Lymphs (auto) Nucleated RBC % Differential Comment Diff Path Review PT INR APTT Specimen Type Sample Site pH Bicarbonate Actual POC Total CO2 Base Excess O2 Saturation ABG pCO2 ABG pO2 Severnio Test O2 Delivery Device Blood Gas Notified Whom Blood Gas Notified Time Sodium Potassium Chloride Carbon Dioxide Anion Gap BUN Creatinine Estim Creat Clear Calc Est GFR (MDRD) Af Amer Est GFR (MDRD) Non-Af BUN/Creatinine Ratio Glucose Hemoglobin A1c Serum Osmolality Lactic Acid Calcium Acetone Level POC Glucose 438 H 388 H 363 H 09/07/19 09/07/19 09/07/19 15:10 16:00 16:10 WBC RBC Hgb Hct MCV MCH MCHC RDW Std Deviation RDW Coeff of Guille Plt Count MPV Immature Gran % (Auto) Neut % (Auto) Lymph % (Auto) [place] % (Auto) Eos % (Auto) Baso % (Auto) Absolute Neuts (auto) Absolute Lymphs (auto) Nucleated RBC % Differential Comment Diff Path Review PT INR APTT Specimen Type Sample Site pH Bicarbonate Actual POC Total CO2 Base Excess O2 Saturation ABG pCO2 ABG pO2 Severino Test O2 Delivery Device Blood Gas Notified Whom Blood Gas Notified Time Sodium 147 H Potassium 4.5 Chloride 116 H Carbon Dioxide 22.0 Anion Gap 9 BUN 32 H Creatinine 1.81 H Estim Creat Clear Calc 61.83 Est GFR (MDRD) Af Amer 56 L Est GFR (MDRD) Non-Af 46 L BUN/Creatinine Ratio 17.7 Glucose 409 H Hemoglobin A1c Serum Osmolality Lactic Acid Calcium 8.7 Acetone Level POC Glucose 294 H 387 H 09/07/19 09/07/19 09/07/19 17:09 18:02 19:03 WBC RBC Hgb Hct MCV MCH MCHC RDW Std Deviation RDW Coeff of Guille Plt Count MPV Immature Gran % (Auto) Neut % (Auto) Lymph % (Auto) [place] % (Auto) Eos % (Auto) Baso % (Auto) Absolute Neuts (auto) Absolute Lymphs (auto) Nucleated RBC % Differential Comment Diff Path Review PT INR APTT Specimen Type Sample Site pH Bicarbonate Actual POC Total CO2 Base Excess O2 Saturation ABG pCO2 ABG pO2 Severino Test O2 Delivery Device Blood Gas Notified Whom Blood Gas Notified Time Sodium Potassium Chloride Carbon Dioxide Anion Gap BUN Creatinine Estim Creat Clear Calc Est GFR (MDRD) Af Amer Est GFR (MDRD) Non-Af BUN/Creatinine Ratio Glucose Hemoglobin A1c Serum Osmolality Lactic Acid Calcium Acetone Level POC Glucose 340 H 348 H 314 H 09/07/19 09/07/19 09/07/19 19:59 20:00 21:06 WBC RBC Hgb Hct MCV MCH MCHC RDW Std Deviation RDW Coeff of Guille Plt Count MPV Immature Gran % (Auto) Neut % (Auto) Lymph % (Auto) [place] % (Auto) Eos % (Auto) Baso % (Auto) Absolute Neuts (auto) Absolute Lymphs (auto) Nucleated RBC % Differential Comment Diff Path Review PT INR APTT Specimen Type Sample Site pH Bicarbonate Actual POC Total CO2 Base Excess O2 Saturation ABG pCO2 ABG pO2 Severino Test O2 Delivery Device Blood Gas Notified Whom Blood Gas Notified Time Sodium 149 H Potassium 3.8 Chloride 116 H Carbon Dioxide 23.0 Anion Gap 10 BUN 28 H Creatinine 1.79 H Estim Creat Clear Calc 62.52 Est GFR (MDRD) Af Amer 57 L Est GFR (MDRD) Non-Af 47 L BUN/Creatinine Ratio 15.6 Glucose 341 H Hemoglobin A1c Serum Osmolality Lactic Acid Calcium 8.7 Acetone Level POC Glucose 314 H 274 H 09/07/19 09/08/19 09/08/19 22:56 03:36 03:40 WBC 19.4 H RBC 4.42 L Hgb 12.4 L Hct 37.5 L MCV 84.8 MCH 28.1 MCHC 33.1 RDW Std Deviation 45.6 H RDW Coeff of Guille 14.8 H Plt Count 315 MPV 9.1 Immature Gran % (Auto) 0.400 Neut % (Auto) 85.2 H Lymph % (Auto) 8.8 L [place] % (Auto) 5.3 Eos % (Auto) 0.1 Baso % (Auto) 0.2 Absolute Neuts (auto) 16.6 H Absolute Lymphs (auto) 1.71 Nucleated RBC % 0 Differential Comment Diff Path Review PT INR APTT Specimen Type Sample Site pH Bicarbonate Actual POC Total CO2 Base Excess O2 Saturation ABG pCO2 ABG pO2 Severino Test O2 Delivery Device Blood Gas Notified Whom Blood Gas Notified Time Sodium Potassium Chloride Carbon Dioxide Anion Gap BUN Creatinine Estim Creat Clear Calc Est GFR (MDRD) Af Amer Est GFR (MDRD) Non-Af BUN/Creatinine Ratio Glucose Hemoglobin A1c Serum Osmolality Lactic Acid Calcium Acetone Level POC Glucose 266 H 349 H 09/08/19 09/08/19 09/08/19 03:40 06:49 10:12 WBC RBC Hgb Hct MCV MCH MCHC RDW Std Deviation RDW Coeff of Guille Plt Count MPV Immature Gran % (Auto) Neut % (Auto) Lymph % (Auto) [place] % (Auto) Eos % (Auto) Baso % (Auto) Absolute Neuts (auto) Absolute Lymphs (auto) Nucleated RBC % Differential Comment Diff Path Review PT INR APTT Specimen Type Sample Site pH Bicarbonate Actual POC Total CO2 Base Excess O2 Saturation ABG pCO2 ABG pO2 Severino Test O2 Delivery Device Blood Gas Notified Whom Blood Gas Notified Time Sodium 145 Potassium 4.0 Chloride 111 H Carbon Dioxide 24.0 Anion Gap 10 BUN 24 H Creatinine 1.45 H Estim Creat Clear Calc 77.18 Est GFR (MDRD) Af Amer 72 Est GFR (MDRD) Non-Af 60 BUN/Creatinine Ratio 16.6 Glucose 363 H Hemoglobin A1c Serum Osmolality Lactic Acid Calcium 8.5 Acetone Level POC Glucose 393 H 194 H Medical Necessity - Tobacco Use Smoking Status: Current every day smoker Tobacco Use: Cigarettes Assessment/Plan All Active Problems (Last Updated 09/07/19 @ 06:[address] Haresh Myers MD) DKA (diabetic ketoacidoses) (Acute) Hyperosmolar syndrome (Acute) Acidosis (Acute) RECOMMENDATIONS: 1. Increase glargine to twice daily with additional one-time dosage with sliding scale 2. Fluid boluses as necessary for tachycardia 3. Obtain CT of the head for evaluation of cerebral edema 4. Attempt to obtain further information on baseline mental status 5. Possibly transfer from the intensive care unit later today IMPRESSIONS: 1. Acute DKA/hyperosmolar syndrome secondary to uncontrolled type 1 diabetes mellitus Exact etiology is unclear at this time. Patient does not have a reliable history provided. Patient's leukocytosis continues to improve, but is still elevated. Patient has remained tachycardic, but appears to be still somewhat volume depleted despite closed gap x3. We will continue to monitor sugars closely. 2. Murmur with reported history of potential drug abuse Murmur has resolved on today's examination. Clinical suspicion for a flow murmur initially. Echocardiogram was relatively unremarkable for vegetations, but a SHELBIE would be a consideration if patient were to develop fever and other constitutional symptoms 3. Metabolic encephalopathy/poor historian/poor background/acute kidney injury Complicates care, management, recovery and prognosis. We will continue to monitor airway closely. Family not able to provide much additional history at this time. Patient continues to have an odd affect. Unclear if this represents baseline psychiatric issues versus malingering versus an element of cerebral edema. Will obtain a CT of the head. Creatinine continues to improve. Continue with aggressive hydration. Code Visit Inpatient E&M: [id number] Subs Hosp L3
--- NOTE | 2019-09-08 11:52 | CASEMGMT ---
MUKESH FRANKEL Note: Participated in ICU interdisciplinary rounds. Pt remains encephalopathic, MUKESH FRANKEL assessment deferred. Attempted to contact mother, no answer and message machine does not have name identifier. Pt has known hx of noncompliance with medications, f/u. MUKESH FRANKEL and SW will continue to follow and evaluated dc planning needs when pt able to fully participate in assessments. Mary MAYORGA BSN ACM
[2019-09-08] MEDS: Glucerna Shake 120 ML LIQUID PO ×2 (12:08→16:25)
[2019-09-08 12:25] LABS: Bedside Glucose 321 mg/dL (70-110)
--- NOTE | 2019-09-08 12:49 | NURSING ---
report called to Maribell MAYORGA PCU
[2019-09-08 12:53] LABS: Amphetamine Urine VISTA NEGATIVE (<1000 ng/mL); Barbiturate Urine VISTA NEGATIVE (< 200 ng/mL); Benzodiazepine Urine VISTA NEGATIVE (< 200 ng/mL); Cocaine Urine VISTA NEGATIVE (< 300 ng/mL); Ecstacy Urine VISTA NEGATIVE (< 500 ng/mL); Methadone Urine VISTA NEGATIVE (< 300 ng/mL); PCP Urine VISTA NEGATIVE (< 25 ng/mL); THC Urine VISTA NEGATIVE (< 50 ng/mL); Vista UDS pH Range 6
--- NOTE | 2019-09-08 15:47 | PCM.PN.REN ---
Patient Problems: Active and Suspected Problems (Last Updated 09/07/19 @ 06:[address] Haresh Myers MD) DKA (diabetic ketoacidoses) (Acute) Hyperosmolar syndrome (Acute) Acidosis (Acute) Subjective: drowsy - Physical Exam Vitals/I&O's: Vital Signs Temp Pulse Resp BP Pulse Ox 99.4 F H 125 H 16 147/73 H 94 09/08/19 13:15 09/08/19 13:15 09/08/19 13:15 09/08/19 13:15 09/08/19 13:15 Oxygen Delivery Method Room Air Weight: 80.6 kg Body Mass Index (BMI) 24.0 Finger Stick Blood Glucose 314 Intake and Output for Last 24 Hours 09/06/19 09/07/19 09/08/19 23:59 23:59 23:59 Intake Total 4931.85 / 5631.85 5756.25 / 5756.25 Output Total 3650 / 4400 2575 / 2575 Balance 1281.85 / 1231.85 3181.25 / 3181.25 General: Alert, Oriented x3, Cooperative HEENT: Atraumatic, PERRLA, EOMI, Normocephalic Neck: Supple, No JVD, Negative Carotid Bruits Lungs: Clear to auscultation, Normal air movement Cardiovascular: Regular rate, No murmurs Abdomen: Bowel Sounds Present, Soft, Non Tender Extremities: No edema, Capillary Refill Less than 3 Seconds Skin: No rashes, No breakdown Musculoskeletal: No Tenderness to Palpation of Joints or Extremities Neurological: Cranial nerves II-XII grossly intact Psych/Mental Status: Normal Affect, Appropriate Microbiology Past 72 Hours 09/07/19 04:20 Urine Catheter - Blanco Urine Culture - Preliminary Culture exhibits no growth. Laboratory Results 09/07/19 03:30: Diff Path Review Reviewed 09/07/19 16:00: Sodium 147 H, Potassium 4.5, Chloride 116 H, Carbon Dioxide 22.0, Anion Gap 9, BUN 32 H, Creatinine 1.81 H, Estim Creat Clear Calc 61.83, Est GFR (MDRD) Af Amer 56 L, Est GFR (MDRD) Non-Af 46 L, BUN/Creatinine Ratio 17.7, Glucose 409 H, Calcium 8.7 09/07/19 16:10: POC Glucose 387 H 09/07/19 17:09: POC Glucose 340 H 09/07/19 18:02: POC Glucose 348 H 09/07/19 19:03: POC Glucose 314 H 09/07/19 19:59: POC Glucose 314 H 09/07/19 20:00: Sodium 149 H, Potassium 3.8, Chloride 116 H, Carbon Dioxide 23.0, Anion Gap 10, BUN 28 H, Creatinine 1.79 H, Estim Creat Clear Calc 62.52, Est GFR (MDRD) Af Amer 57 L, Est GFR (MDRD) Non-Af 47 L, BUN/Creatinine Ratio 15.6, Glucose 341 H, Calcium 8.7 09/07/19 21:06: POC Glucose 274 H 09/07/19 22:56: POC Glucose 266 H 09/08/19 03:36: POC Glucose 349 H 09/08/19 03:40: WBC 19.4 H, RBC 4.42 L, Hgb 12.4 L, Hct 37.5 L, MCV 84.8, MCH 28.1, MCHC 33.1, RDW Std Deviation 45.6 H, RDW Coeff of Guille 14.8 H, Plt Count 315, MPV 9.1, Immature Gran % (Auto) 0.400, Neut % (Auto) 85.2 H, Lymph % (Auto) 8.8 L, [place] % (Auto) 5.3, Eos % (Auto) 0.1, Baso % (Auto) 0.2, Absolute Neuts (auto) 16.6 H, Absolute Lymphs (auto) 1.71, Nucleated RBC % 0 09/08/19 03:40: Sodium 145, Potassium 4.0, Chloride 111 H, Carbon Dioxide 24.0, Anion Gap 10, BUN 24 H, Creatinine 1.45 H, Estim Creat Clear Calc 77.18, Est GFR (MDRD) Af Amer 72, Est GFR (MDRD) Non-Af 60, BUN/Creatinine Ratio 16.6, Glucose 363 H, Calcium 8.5 09/08/19 06:49: POC Glucose 393 H 09/08/19 10:12: POC Glucose 194 H 09/08/19 12:04: POC Glucose 321 H 09/08/19 12:20: Urine Opiates Screen NEGATIVE, Urine Methadone Screen NEGATIVE, Ur Barbiturates Screen NEGATIVE, Ur Phencyclidine Scrn NEGATIVE, Ur Amphetamines Screen NEGATIVE, U Methamphetamin-MDMA NEGATIVE, U Benzodiazepines Scrn NEGATIVE, Urine Cocaine Screen NEGATIVE, U Cannabinoids Screen NEGATIVE, Ur Drug Screen Comment Current Medications Glucagon () 1 mg IM .X1 PRN PRN Reason: Hypoglycemia Sodium Chloride () 250 mls @ 15 mls/hr IV .[id number] PRN PRN Reason: Saline Flush Sodium Chloride () 250 mls @ 15 mls/hr IV .[id number] PRN PRN Reason: Additional IVPB Infusion Dextrose (Dextrose 10%-Water) 250 mls @ 999 mls/hr IV .Q16M PRN; Protocol PRN Reason: HYPOGLYCEMIA Lactated Ringer's () 1,000 mls @ 75 mls/hr IV .[id number] GELY Last Infusion: 09/08/19 12:00 Dose: 75 mls/hr Documented by: Insulin Glargine (Lantus (Bkc)) 25 units SC BID GELY Last Admin: 09/08/19 11:12 Dose: 25 units Documented by: Insulin Human Lispro (Humalog Kwikpen (Bkc)) 0 unit SC ACHS GELY; Protocol Last Admin: 09/08/19 12:06 Dose: 5 units Documented by: Nutritional Formula (Lactose Free) (Glucerna Shake) 120 ml PO TIDCM GELY Last Admin: 09/08/19 12:08 Dose: 120 ml Documented by: Ondansetron HCl (Zofran) 4 mg IV Q8H PRN PRN PRN Reason: NAUSEA/VOMITING Last Admin: 09/07/19 06:40 Dose: 4 mg Documented by: Sodium Chloride () 10 - 40 ml IV UD PRN PRN Reason: SALINE FLUSH Medical Necessity - Tobacco Use Smoking Status: Current every day smoker Tobacco Use: Cigarettes Assessment/Plan All Active Problems (Last Updated 09/07/19 @ 06:[address] Haresh Myers MD) DKA (diabetic ketoacidoses) (Acute) Hyperosmolar syndrome (Acute) Acidosis (Acute) Acute renal failure. Likely related to volume depletion. Urine output is fairly good. Creatinine is improving with volume repletion. Hyperkalemia is better. Acidosis. Elevated anion gap, diabetic ketoacidosis related. resolved
[2019-09-08 16:46] LABS: Bedside Glucose 224 mg/dL (70-110)
[2019-09-08 21:50] LABS: Bedside Glucose 442 mg/dL (70-110)
--- NOTE | 2019-09-08 21:50 | NURSING ---
blood sugar 442 but pt had 6 milk cartons on his bedside table. Instructed pt he has to have water
[2019-09-09] VITALS (9 sets, daily range): BP systolic 120–141; BP diastolic 80–91; PULSE 93–110; RESP 16–18; TEMP 36.7–36.8; O2SAT 97–98
[2019-09-09 06:03] LABS: Absolute Lymphocyte Count 2.44 X10^3/uL (0.83-4.51); Basophil# 0.03 X10^3/uL; Basophil% 0.3 % (0-1); Eosinophil# 0.11 X10^3/uL; Eosinophils% 1.2 % (0-5); Hematocrit 35.2 % (40-54); Hemoglobin 11.7 g/dL (13.0-16.5); Lymphocyte # 2.44 X10^3/ul (4.0); Lymphocyte % 26.2 % (19-41); Mean Corp Hgb Conc 33.2 g/dL (32-36); Mean Corpuscular Hgb 28.7 pg (27.0-32.0); Mean Corpuscular Volume 86.3 fL (80-94); Monocyte# 0.68 X10^3/uL; Monocyte% 7.3 % (0-10); NRBC Flagged by Analyzer 0 % (0-5); Neutrophil # 6.03 X10^3/uL (2.7-7.7); Neutrophil % 64.6 % (47-70); Platelet Count 189 K/mm3 (150-450); RBC Distribution Width CV 14.1 % (11.6-14.6); Red Blood Count 4.08 M/mm3 (4.6-6.2); White Blood Count 9.3 K/mm3 (4.4-11.0)
[2019-09-09 06:23] LABS: Anion Gap 8 (5-15); BUN 23 mg/dL (7-18); BUN/Creat Ratio 24.9 RATIO (10-20); Calcium,Total 8.5 mg/dL (8.5-10.1); Chloride 101 mmol/L (98-107); Creatinine, Serum 0.92 mg/dL (0.70-1.30); EST Glomerular Filtration Rate 100 mL/min (>60); Est Glom Filt Rate - Afr Amer 121 mL/min (>60); Estimated Creatinine Clearance 121.63 ml/min; Glucose 340 mg/dL (74-106); Potassium 3.8 mmol/L (3.5-5.1); Sodium Level 135 mmol/L (136-145)
[2019-09-09] MEDS: Insulin Lispro 100 UNIT/ML INSULN.PEN SC ×4 (06:34→23:03)
[2019-09-09 06:56] LABS: Bedside Glucose 324 mg/dL (70-110)
[2019-09-09] MEDS: Lactated Ringers 1,000 ML 75 ML IV (08:33)
[2019-09-09] MEDS: Glucerna Shake 120 ML LIQUID PO ×3 (09:24→16:55)
--- NOTE | 2019-09-09 10:19 | NURSING ---
EKG strip not read and printed out since telemonitor had LL lead off. This nurse attempted to fix several times and did not work. This nurse asked Yelena MAYORGA, Union Organizer and then did was she recommended which was switch out the top part of the telmonitor. This nurse did that and telemonitor is picking up all leads and I was able to print a strip.
--- NOTE | 2019-09-09 11:00 | CASEMGMT ---
Addendum entered by Nimco Cooper 09/09/19 13:19: 1110: Call placed to pt's mom. No answer. Message left asking for her to return call to this CM. Phone number provided. Original Note: RN CM CENTRAL SUPPLY MANAGER CM to room to meet with patient for initial transition planning/care coordination assessment. RN JOSTIN introduced self and role at [facility]. Pt voices understanding and consents to assessment at this time. Pt resting in bed in no distress at this time. Pt is alert and able to answer some questions, but states, I'm a little foggy and don't remember a lot right now. He gave short answers to most questions and did not elaborate much. Pt's phone number and his mom's number listed is the same number. Pt confirms he does not have his own phone/that he uses his moms phone. He does not live with her, but states she just lives 2 miles away. Pt gave RN JOSTIN permission to contact his mother after assessment completed to discuss further info/obtain further information. PCP: Dr Adam Barney listed but pt states, I don't remember. Specialists: Stated, I don't remember. When asked pt if he sees an motors assembler/someone that specializes in diabetes, pt stated, I don't know. Preferred Pharmacy: [facility] [place] [facility]: [facility]. Inquired of pt if he has a online merchandising manager through [employer]. He states he does, but does not remember her name. Prescription Benefit: Yes Living Will/HPOA: Pt does not currently have LW/HCPOA and declines info at this time LNOK: Mom, Jud Teague. Pt states his father just recently. Living Arrangements: Lives with a roommate. States is independent. Transportation: Pt states drives self and states no transportation concerns at this time. States his mom will take him home @ discharge. DME: States has a glucometer. States it is functioning properly and that he has all the needed supplies. Pt states that he has been checking his blood sugars at home and taking his diabetic medication as prescribed. He states he takes insulin and that he has enough medication at home. He denies taking PO form diabetic medication. Substance Abuse: Pt states he has had a history of drug use in the past, but states, That was forever ago. A long time ago. I don't know why that's even on there. Pt denies any current or recent illegal drug use or ETOH use. Pt wishes to return home and states has no concerns with going home at time of discharge. CM to follow for any further discharge planning/needs. Pt voices no further concerns/needs at this time. Advised pt to ask for CM if any further questions/concerns/needs arise. Voices understanding. PLAN: Home Brijesh TIDWELL RN CM
--- NOTE | 2019-09-09 11:07 | CASEMGMT ---
Pt reported to Nimco MAYORGA CM that he uses the [facility] for pharmacy. Call to [facility] to try and obtain pt med list as he is unsure what he is on at this time. Per Courtney at [facility], pt is in their system but has no prescriptions listed at this time. This MUKESH FRANKEL to room to advise pt of same and pt states 'Oh, I forgot it's [facility] Call to pharmacist at [facility] and he states that they filled humalog 100unit/ml qwikpens 15 units to be given before meals for pt in july and gabapentin 300mg 1 cap four times daily on 08/07/19. Per pharmacist, he states pt has never filled pen needles there and has not gotten lancets/test strips filled there since 2018. Pharmacist states that pt has transferred scripts between other [facility] pharmacies in the past. Dr. Gasca updated on all, voices understanding. Kishan MAYORGA CM
--- NOTE | 2019-09-09 11:17 | PN_ITS ---
Patient Problems: Active and Suspected Problems (Last Updated 09/07/19 @ 06:[address] Haresh Myers MD) DKA (diabetic ketoacidoses) (Acute) Hyperosmolar syndrome (Acute) Acidosis (Acute) Reason for Visit: DKA Subjective: Feels foggy still. Vitals/I&O's: Vital Signs Temp Pulse Resp BP Pulse Ox 36.7 C 105 H 18 141/84 H 97 09/09/19 09:28 09/09/19 10:15 09/09/19 09:28 09/09/19 09:28 09/09/19 09:28 Oxygen Delivery Method Room Air Weight: 83.8 kg Body Mass Index (BMI) 24.0 Finger Stick Blood Glucose 314 Intake and Output for Last 24 Hours 09/07/19 09/08/19 09/09/19 23:59 23:59 23:59 Intake Total 4931.85 / 5631.85 8097.50 / 8097.50 2079 / 2080 Output Total 3650 / 4400 4025 / 4025 1950 / 1950 Balance 1281.85 / 1231.85 4072.50 / 4072.50 130 / 130 General: Alert, Oriented x3 - More alert today., No apparent distress, - HEENT: Atraumatic, Normocephalic Oral: Moist Mucosa, No Gingival or Mucosal Lesions/ Ulcerations Neck: No Nodes, Trachea Midline Lungs: Clear to auscultation, Normal air movement, No rhonchi, No wheeze, No rales Cardiovascular: Regular rate, Regular Rhythm, Normal S1, Normal S2, No murmurs Abdomen: Bowel Sounds Present, Soft, Non Tender, Non-Distended, No Hepato- splenomegaly Extremities: No edema, No Calf Tenderness Skin: No rashes, No breakdown Psych/Mental Status: Normal Affect, Appropriate Microbiology Past 72 Hours 09/07/19 04:20 Urine Catheter - Blanco Urine Culture - Final Culture exhibits no growth. Laboratory Results 09/08/19 12:04: POC Glucose 321 H 09/08/19 12:20: Urine Opiates Screen NEGATIVE, Urine Methadone Screen NEGATIVE, Ur Barbiturates Screen NEGATIVE, Ur Phencyclidine Scrn NEGATIVE, Ur Amphetamines Screen NEGATIVE, U Methamphetamin-MDMA NEGATIVE, U Benzodiazepines Scrn NEGATIVE, Urine Cocaine Screen NEGATIVE, U Cannabinoids Screen NEGATIVE, Ur Drug Screen Comment 09/08/19 16:23: POC Glucose 224 H 09/08/19 21:40: POC Glucose 442 H 09/09/19 05:30: WBC 9.3, RBC 4.08 L, Hgb 11.7 L, Hct 35.2 L, MCV 86.3, MCH 28.7, MCHC 33.2, RDW Std Deviation 45.0 H, RDW Coeff of Guille 14.1, Plt Count 189, MPV 9.0, Immature Gran % (Auto) 0.400, Neut % (Auto) 64.6, Lymph % (Auto) 26.2, Douglas % (Auto) 7.3, Eos % (Auto) 1.2, Baso % (Auto) 0.3, Absolute Neuts (auto) 6.0, Absolute Lymphs (auto) 2.44, Nucleated RBC % 0 09/09/19 05:30: Sodium 135 L, Potassium 3.8, Chloride 101, Carbon Dioxide 26.0, Anion Gap 8, BUN 23 H, Creatinine 0.92, Estim Creat Clear Calc 121.63, Est GFR (MDRD) Af Amer 121, Est GFR (MDRD) Non-Af 100, BUN/Creatinine Ratio 24.9 H, Glucose 340 H, Calcium 8.5 09/09/19 06:34: POC Glucose 324 H Current Medications Glucagon () 1 mg IM .X1 PRN PRN Reason: Hypoglycemia Sodium Chloride () 250 mls @ 15 mls/hr IV .[id number] PRN PRN Reason: Saline Flush Sodium Chloride () 250 mls @ 15 mls/hr IV .[id number] PRN PRN Reason: Additional IVPB Infusion Dextrose (Dextrose 10%-Water) 250 mls @ 999 mls/hr IV .Q16M PRN; Protocol PRN Reason: HYPOGLYCEMIA Lactated Ringer's () 1,000 mls @ 75 mls/hr IV .[id number] GELY Last Admin: 09/09/19 08:33 Dose: 75 mls/hr Documented by: Insulin Glargine (Lantus (Bk)) 32 units SC BID GELY Insulin Human Lispro (Humalog Kwikpen ([facility])) 0 unit SC ACHS GELY; Protocol Last Admin: 09/09/19 06:34 Dose: 5 units Documented by: Insulin Human Lispro (Humalog Kwikpen (Bkc)) 8 unit SC TIDAC GELY Nutritional Formula (Lactose Free) (Glucerna Shake) 120 ml PO TIDCM GELY Last Admin: 09/09/19 09:24 Dose: 120 ml Documented by: Ondansetron HCl (Zofran) 4 mg IV Q8H PRN PRN PRN Reason: NAUSEA/VOMITING Last Admin: 09/07/19 06:40 Dose: 4 mg Documented by: Sodium Chloride () 10 - 40 ml IV UD PRN PRN Reason: SALINE FLUSH STROKE Vital Signs/Narrative: Vital Signs Temp Pulse Resp BP Pulse Ox 09/09/19 10:15 105 H 09/09/19 09:28 36.7 C 102 H 18 141/84 H 97 09/09/19 09:00 102 H Medical Necessity - Tobacco Use Smoking Status: Current every day smoker Tobacco Use: Cigarettes Assessment/Plan All Active Problems (Last Updated 09/07/19 @ 06:[address] Haresh Myers MD) DKA (diabetic ketoacidoses) (Acute) Hyperosmolar syndrome (Acute) Acidosis (Acute) 1. DKA * resolved * patient does not know what he takes at home. 2. Encephalopathy * ongoing but improving * unknown baseline, though, presumably better than he is currently * Talk screen negative those done roughly 2 days after he was admitted and head CT was negative. * avoid potentiating agents 3. Diabetes mellitus type 1, uncontrolled and elevated * Will increase the patient's glargine from 25-32 twice daily and then to start him on prandial dosing of NovoLog with 8 units with meals. Continue with sliding scale insulin for now * Hemoglobin A1c is 9.7 * Patient still has no idea how much insulin he takes but he states that he only takes insulin glargine. Attempt to contact his pharmacy were successful but they do not actually have him on record of having any insulin prescribed at that particular pharmacy. 3. ELIUD * Resolved * Hep-Lock IV * likely prerenal 4. Disposition: not ready for discharge yet, want to get his blood sugars are better control being that the patient is not a reliable historian unable to provide us dosing for insulin that he actually takes and sugar since we can actually find what dose he actually takes. So we will monitor the patient overnight again. We will de-escalate his level of care to MedSurg status. Inpatient E&M: 67078 Subs Hosp L2
[2019-09-09] MEDS: Insulin Lispro 100 UNIT/ML INSULN.PEN 8 UNIT SC ×2 (12:07→16:55)
[2019-09-09 12:25] LABS: Bedside Glucose 377 mg/dL (70-110)
--- NOTE | 2019-09-09 12:26 | NURSING ---
Pt upset that he got food delivered to him that was not ordered by him. Explained that he was a Non-Select and that is why he received food he did not order. Pt refused to eat it. This nurse changed order so he could select his own meals but still following a Carb Controlled diet as ordered.
[2019-09-09 17:00] LABS: Bedside Glucose 355 mg/dL (70-110)
[2019-09-09 23:11] LABS: Bedside Glucose 181 mg/dL (70-110)
[2019-09-10 02:35] VITALS: BP 117/72; PULSE 103; RESP 16; TEMP 36.9; O2SAT 97
[2019-09-10] MEDS: Mag Hydrox/Al Hydrox/Simeth 30 ML UDC 15 ML PO (03:06)
[2019-09-10] MEDS: Insulin Lispro 100 UNIT/ML INSULN.PEN 8 UNIT SC (08:11)
[2019-09-10] MEDS: Glucerna Shake 120 ML LIQUID PO (08:17)
[2019-09-10 08:20] VITALS: BP 130/90; PULSE 98; RESP 14; TEMP 36.6; O2SAT 97
[2019-09-10 08:25] LABS: Bedside Glucose 112 mg/dL (70-110)
--- NOTE | 2019-09-10 08:58 | PCM.DC ---
- Discharge Diagnoses Current Active Problems: Current Active and Chronic Problems (Last Updated 09/07/19 @ 06:[address] Haresh Myers MD) DKA (diabetic ketoacidoses) (Acute) Hyperosmolar syndrome (Acute) Acidosis (Acute) You will use the following diet at home:: Calorie/Carbohydrate Controlled (specify 1200, 1400, etc) - 1800 Your food should be the consistency of: Regular Your liquids should be the consistency of: Regular/Thin Discharge Activity: Return to Normal Activity Call your doctor if you observe: - - confusion. persistantly elevated blood sugar (greater than 300). Allergies/Adverse Reactions: Allergies No Known Allergies Allergy (Verified 09/07/19 03:43) Medications to take at Discharge Insulin Glargine [Lantus SoloStar Pen] 32 units SUBCUT BID #1 pen 09/10/19 Insulin Lispro [Humalog KwikPen] 8 unit SUBCUT TIDAC #1 insuln.pen 09/10/19 The following prescriptions were given: Insulin Lispro [Humalog KwikPen] 8 unit SUBCUT TIDAC #1 insuln.pen Transmission Status: Pending to [facility]/pharmacy #[id number] Insulin Glargine [Lantus SoloStar Pen] 32 units SUBCUT BID #1 pen Transmission Status: Pending to [facility]/pharmacy #[id number] Primary Care Physician: Adam Barney MD [Primary Care Provider] - Within 2 Weeks Test Results: Test results from this visit will be discussed in further detail at your follow-up appointment, if applicable. Please Follow Up With: Yossi Fenton MD - Endocrinology When: 2-4 weeks Proposed Discharge Date: 09/10/19
--- NOTE | 2019-09-10 09:01 | PCM.DC.SUM ---
Discharge Date and Diagnosis - Problem List Patient Problems: Active and Suspected Problems (Last Updated 09/07/19 @ 06:[address] Haresh Myers MD) DKA (diabetic ketoacidoses) (Acute) Acidosis (Acute) Date of Admission: 09/07/19 Date of Discharge: 09/10/19 - Primary Discharge Diagnosis Active and Suspected Problems (Last Updated 09/07/19 @ 06:[address] Haresh Myers MD) 1. DKA resolved patient does not know what he takes at home. 2. Encephalopathy ongoing but improving unknown baseline, though, presumably better than he is currently Talk screen negative those done roughly 2 days after he was admitted and head CT was negative. avoid potentiating agents 3. Diabetes mellitus type 1, uncontrolled and elevated Will increase the patient's glargine from 25-32 twice daily and then to start him on prandial dosing of NovoLog with 8 units with meals. Continue with sliding scale insulin for now Hemoglobin A1c is 9.7 Patient still has no idea how much insulin he takes but he states that he only takes insulin glargine. Attempt to contact his pharmacy were successful but they do not actually have him on record of having any insulin prescribed at that particular pharmacy. 3. ELIUD Resolved Hep-Lock IV likely prerenal Hospital Course and Treatment Imaging Results: Clinical Impression(s) from Imaging Studies Brain CT 09/08/19 08:46 IMPRESSION: Normal unenhanced CT scan of the brain. Electronically Signed: Fer Donte, at 11:16 EST , Service support , Operations: None Procedures: None Summary of Care Provided: The patient is a 34 year old M presents with nausea and vomiting and confusion. Patient was found to be in diabetic ketoacidosis. Patient was started on the standard protocol with fluids and insulin drip. Patient was also confused. Once patient was out of diabetic ketoacidosis, the patient was still confused. And so and patient was unable to tell us what his home dose of insulin was other than he takes insulin glargine at home. So patient was started on 25 units twice daily to see if that would be sufficient to hold him over. Blood sugars still remain elevated but much improved. Increased to 32 and patient was started on prandial insulin as well. Blood sugar overall is improved. Hemoglobin A1c was at 9.7. Patient's confusion has quite resolved today and blood sugar has remained fairly well controlled. Plan is for the patient be discharged with 32 units of insulin glargine twice daily +8 units with meals. This will likely need to be titrated upwards though possibly could be titrated downwards dependent depending on how his blood sugar control is. I verified with the patient that he has all the appropriate testing supplies: Glucometer, testing strips, lancets and needles. Plan for the patient be discharged to follow this primary care physician but also to get established with endocrinology. Patient has been provided the information to follow-up with Dr. Fenton endocrinology. [] Patient Problems: Active and Suspected Problems (Last Updated 09/07/19 @ 06:[address] Haresh Myers MD) DKA (diabetic ketoacidoses) (Acute) Acidosis (Acute) - Physical Exam Vitals/I&O's: Vital Signs Temp Pulse Resp BP Pulse Ox 36.6 C 98 14 130/90 H 97 09/10/19 08:20 09/10/19 08:20 09/10/19 08:20 09/10/19 08:20 09/10/19 08:20 Oxygen Delivery Method Room Air Weight: 84 kg Body Mass Index (BMI) 24.0 Finger Stick Blood Glucose 314 Intake and Output for Last 24 Hours 09/08/19 09/09/19 09/10/19 23:59 23:59 23:59 Intake Total 8097.50 / 8097.50 4181.5 / 4681.5 500 / 500 Output Total 4025 / 4025 3700 / 4100 400 / 400 Balance 4072.50 / 4072.50 481.5 / 581.5 100 / 100 General: Alert, No apparent distress HEENT: Atraumatic, Normocephalic Oral: Moist Mucosa, No Gingival or Mucosal Lesions/ Ulcerations Psych/Mental Status: Normal Affect, Appropriate Microbiology Past 72 Hours 09/07/19 05:10 Blood Culture (Wb) - Right Hand Blood Culture - Preliminary No growth in 48 hours. 09/07/19 04:30 Blood Culture (Wb) - Anticubital Left Blood Culture - Preliminary No growth in 48 hours. 09/07/19 04:20 Urine Catheter - [place] Urine Culture - Final Culture exhibits no growth. Laboratory Results 09/09/19 12:02: POC Glucose 377 H 09/09/19 16:52: POC Glucose 355 H 09/09/19 23:02: POC Glucose 181 H 09/10/19 08:09: POC Glucose 112 H Current Medications Al Hydroxide/Mg Hydroxide (Mylanta Ii) 15 ml PO Q6H PRN PRN PRN Reason: heartburn Last Admin: 09/10/19 03:06 Dose: 15 ml Documented by: Glucagon () 1 mg IM .X1 PRN PRN Reason: Hypoglycemia Sodium Chloride () 250 mls @ 15 mls/hr IV .[id number] PRN PRN Reason: Saline Flush Sodium Chloride () 250 mls @ 15 mls/hr IV .[id number] PRN PRN Reason: Additional IVPB Infusion Dextrose (Dextrose 10%-Water) 250 mls @ 999 mls/hr IV .Q16M PRN; Protocol PRN Reason: HYPOGLYCEMIA Insulin Glargine (Lantus (Bkc)) 32 units SC BID GELY Last Admin: 09/10/19 08:17 Dose: 32 u Documented by: Insulin Human Lispro (Humalog Kwikpen (Bk)) 0 unit SC ACHS [facility]; Protocol Last Admin: 09/10/19 08:12 Dose: Not Given Documented by: Insulin Human Lispro (Humalog Kwikpen ([facility])) 8 unit SC TIDAC GELY Last Admin: 09/10/19 08:11 Dose: 8 units Documented by: Nutritional Formula (Lactose Free) (Glucerna Shake) 120 ml PO TIDCM GELY Last Admin: 09/10/19 08:17 Dose: 120 ml Documented by: Ondansetron HCl (Zofran) 4 mg IV Q8H PRN PRN PRN Reason: NAUSEA/VOMITING Last Admin: 09/07/19 06:40 Dose: 4 mg Documented by: Sodium Chloride () 10 - 40 ml IV UD PRN PRN Reason: SALINE FLUSH Discharge Diet: 1800 Calorie Control Diet Discharge Activity: Return to Normal Activity Call your doctor if you observe: - - confusion. persistantly elevated blood sugar (greater than 300). Home Medications: Medications to take at Discharge Insulin Glargine [Lantus SoloStar Pen] 32 units SUBCUT BID #1 pen 09/10/19 Insulin Lispro [Humalog KwikPen] 8 unit SUBCUT TIDAC #1 insuln.pen 09/10/19 Following Prescrptions Were Given to Patient: Insulin Lispro [Humalog KwikPen] 8 unit SUBCUT TIDAC #1 insuln.pen Transmission Status: Pending to [facility]/pharmacy #[id number] Insulin Glargine [Lantus SoloStar Pen] 32 units SUBCUT BID #1 pen Transmission Status: Pending to [facility]/pharmacy #[id number] Primary Care Physician: Adam Barney MD [Primary Care Provider] - Within 2 Weeks Please Follow Up With: Yossi Fenton MD - Endocrinology When: 2-4 weeks Disposition: Home Minutes spent on discharge:: 28 Patient Condition:: Good Medical Necessity - Tobacco Use Smoking Status: Current every day smoker Tobacco Use: Cigarettes Meaningful Use Info Meaningful Use Diagnoses (Choose all that apply): None applicable Inpatient E&M: 14592 [facility] Hosp
== END 2019-09-10 11:05 | disposition home or self-care (01) | DRG 420 ==
LOC: ICU 09-08 10:26 → PCU 09-08 13:15
PROVIDERS: Admitting Provider Hospitalist; PCP Family Medicine
DX: E10.10 Type 1 diabetes mellitus with ketoacidosis without coma (principal); N17.9 Acute kidney failure, unspecified; F17.210 Nicotine dependence, cigarettes, uncomplicated; G93.41 Metabolic encephalopathy; R01.1 Cardiac murmur, unspecified; Z79.4 Long term (current) use of insulin
CPT/HCPCS: 36415; 36600; 70450; 80048; 80307; 82009; 82803; 82947; 82962; 83036; 83605; 83930; 85025; 85610; 85730; 87040; 87086; 93306; 97802; J7030; J7120; J2405; J7799

== ENCOUNTER 2019-10-02 13:27 | Emergency (ER) | payer MEDICAID, SELFPAY ==
[2019-09-07 03:15] VITALS: BMI 24.0
[2019-10-02 13:28] VITALS: BP 140/80; PULSE 122; RESP 16; TEMP 36.1; O2SAT 100; BMI 28.5
--- NOTE | 2019-10-02 13:50 | RAD_ITS ---
STUDY: X-RAY CHEST REASON FOR EXAM: Male, 34 years old. Bilateral lower extremity edema TECHNIQUE: Single frontal view of the chest. COMPARISON: None. FINDINGS: The lungs are clear and expanded. There is no demonstrated pleural abnormality. Normal size heart. Normal mediastinum and tammy. Normal visualized pulmonary arteries. Normal visualized aortic arch and descending thoracic aorta. Normal visualized thoracic spine. Normal visualized ribs, clavicles, and shoulders. There is no demonstrated abnormality of the visualized soft tissue structures of the upper abdomen. RAD/Chest 1 View (Portable) IMPRESSION: No acute cardiopulmonary process. Electronically Signed: Tressa White MD at 14:24 EDT Tel , Service support ,
--- NOTE | 2019-10-02 13:51 | ED.DCSUM_ITS ---
- ER Visit Summary Date of Service: 10/02/19 Chief Complaint: Lower extremity edema History of Present Illness: The patient is a 34 M who presents with swelling to his lower legs and feet there is been getting worse over the past 3 days. Patient denies any pain. Patient denies any trauma. Patient states it started in his feet and is now spreading up into his lower legs. Patient denies any chest pain or shortness of breath. Patient denies any nausea or vomiting. Patient denies any fevers or chills. Patient denies any paresthesias or weakness. Patient denies any rashes. Patient does have a history of diabetes and is on insulin. Physical Examination: Vital signs are stable. Patient is afebrile. Patient is in no acute distress. Oral mucosa is pink and moist. Neck is supple. Trachea is midline. There is no JVD noted. Heart was regular rate and rhythm. Lungs are clear and equal bilaterally. Abdomen is soft. Bowel sounds are normal. There is no tenderness. There is no rebound or guarding noted. Skin is warm dry. Cranial nerves II through XII are intact. There are no focal motor or sensory deficits noted. Extremities are intact. There is no calf tenderness but there is 1+ edema of the anterior lower legs bilaterally. Test Results: CBC and basic metabolic profile were obtained and were essentially within normal limits. Portable chest x-ray was obtained. There is no acute cardiopulmonary process. This was interpreted by the radiologist and myself. Emergency Department Course and Treatment: Patient was advised of his results. Patient was instructed to keep his legs elevated. Patient was instructed to follow-up with his primary care physician for further evaluation. Patient understood and was agreeable with the plan. All questions were answered. Disposition: Discharge home Impression: Peripheral edema This note was generated with [employer] dictation software. It may contain incorrect words, spelling, and punctuation that were not noted in review of the chart prior to signing ED Disposition - Plan for ED Patient: Disposition: Home or Assisted Living Diagnosis: Peripheral edema Instructions: ED Peripheral Edema, Bilateral Referrals: NOT,DEFINED [NON-STAFF] - 3-5 Days
[2019-10-02 14:32] LABS: Absolute Lymphocyte Count 2.32 X10^3/uL (0.83-4.51); Absolute Neutrophil Count 6.6 X10^3/uL (2.0-7.7); Basophil# 0.05 X10^3/uL; Basophil% 0.5 % (0-1); Eosinophil# 0.12 X10^3/uL; Eosinophils% 1.2 % (0-5); Hematocrit 34.1 % (40-54); Hemoglobin 11.2 g/dL (13.0-16.5); Lymphocyte # 2.32 X10^3/ul (4.0); Lymphocyte % 23.4 % (19-41); Mean Corp Hgb Conc 32.8 g/dL (32-36); Mean Corpuscular Hgb 29.2 pg (27.0-32.0); Mean Platelet Vol. 8.7 fl (6.2-12.0); Monocyte# 0.72 X10^3/uL; Monocyte% 7.3 % (0-10); NRBC Flagged by Analyzer 0 % (0-5); Neutrophil % 66.7 % (47-70); Platelet Count 372 K/mm3 (150-450); RBC Distribution Width CV 14.6 % (11.6-14.6); RBC Distribution Width SD 47.1 fl (35.1-43.9); Red Blood Count 3.83 M/mm3 (4.6-6.2); White Blood Count 9.9 K/mm3 (4.4-11.0)
[2019-10-02 14:47] LABS: Anion Gap 12 (5-15); BUN 18 mg/dL (7-18); BUN/Creat Ratio 16.7 RATIO (10-20); Calcium,Total 9.1 mg/dL (8.5-10.1); Chloride 103 mmol/L (98-107); Creatinine, Serum 1.08 mg/dL (0.70-1.30); EST Glomerular Filtration Rate 84 mL/min (>60); Est Glom Filt Rate - Afr Amer 101 mL/min (>60); Estimated Creatinine Clearance 103.61 ml/min; Glucose 185 mg/dL (74-106); Potassium 3.6 mmol/L (3.5-5.1); Sodium Level 138 mmol/L (136-145)
== END 2019-10-02 15:39 | disposition home or self-care (01) ==
PROVIDERS: Emergency Provider Emergency Medicine
DX: R60.0 Localized edema (principal); E11.9 Type 2 diabetes mellitus without complications; Z79.4 Long term (current) use of insulin
CPT/HCPCS: 71045; 80048; 85025; 99283; A4216